=== PATIENT | male | born 1960 | race Caucasian/White ===

== ENCOUNTER → 2020-02-20 12:07 | Outpatient (CLI) | payer BC, SELFPAY ==
--- NOTE | ~2020-02-20 | XR_ITS ---
EXAMINATION: XR ankle LT min 3V DATE: 02/20/2020 12:17 INDICATION: Left ankle pain TECHNIQUE: Anteroposterior, oblique, mortise, and lateral views of the left ankle were obtained. COMPARISON: None. FINDINGS: Alignment is normal. No fracture. Joint spaces are well maintained. Tiny heterotopic ossicle positio mariia between the talus and the tip of the medial malleolus which could represent either a degenerative loose body or heterotopic ossification related to chronic medial ankle sprain. No ankle joint effusi on. The soft tissues are unremarkable. IMPRESSION: 1. No left ankle joint effusion or acute osseous abnormality. Reviewed, dictated and finalized at location A.
== END ==
PROVIDERS: PCP Family Medicine; Visit Provider Family Medicine
DX: M25.572 Pain in left ankle and joints of left foot (principal)
CPT/HCPCS: 73610

== ENCOUNTER 2020-03-24 09:18 | Emergency (ER) | payer OTHER, BC, SELFPAY ==
--- NOTE | ~2020-03-24 | XR_ITS ---
EXAMINATION: XR hand RT min 3V DATE: 03/24/2020 09:38 INDICATION: Right hand pain and swelling. TECHNIQUE: 3 views of right hand were obtained. COMPARISON: None. FINDINGS: Bone alignment is normal. No fracture. There is a 5 mm nonaggressive lytic lesion in scapho id, likely an enchondroma. There is mild osteoarthritis of second-fifth distal interphalangeal joints . IMPRESSION: 1. Mild polyarticular osteoarthritis. Reviewed, dictated and finalized at location A.
--- NOTE | 2020-03-24 09:29 | ED.UPPEXIN ---
HPI - Extremity Injury (Upper) General Chief Complaint: Extremity Injury, Upper Stated Complaint: swollen hand Time Seen by Provider: 03/24/20 09:29 Source: patient and RN notes reviewed History of Present Illness HPI narrative: Patient is a 59-year-old male who presents the urgent care with complaints of swelling to the right middle digit as well as the right hand. Patient states he is right-hand dominant and does work at [employer]. Patient states he did notice a small cut on the middle finger approximately 1 week ago and the swelling started on . Patient states he also had a fever of 101 Fahrenheit this morning. Patient is taken ibuprofen and tramadol for the pain and fever. Patient denies of any known injury. Unsure of last tetanus. No other acute complaints. No acute distress noted. Patient aware of the plan of care. Some parts of this dictation were generated by voice recognition software and may contain typographical and/or grammatical inaccuracies. Related Data Home Medications Medication Instructions Recorded Confirmed ibuprofen 800 mg PO Q8H PRN 03/24/20 03/24/20 Allergies Allergy/AdvReac Type Severity Reaction Status Date / Time atorvastatin Allergy Unknown leg pain Verified 03/24/20 09:36 Penicillins Allergy Unknown Skin Verified 03/24/20 09:36 Reaction simvastatin Allergy Unknown myalgias Verified 03/24/20 09:36 Review of Systems Review of Systems: Narrative: CONSTITUTIONAL: Denies fever, chills, or sweats. EYES: Denies visual changes, redness, or discharge. ENT: Denies rhinorrhea, congestion, sore throat, or otalgia. CARDIOVASCULAR: Denies chest pain, palpitations, or edema. RESPIRATORY: Denies cough or dyspnea. GASTROINTESTINAL: Denies abdominal pain, nausea, vomiting, or diarrhea. GENITOURINARY: Denies dysuria or hematuria. SKIN: Denies rash or itching. MUSCULOSKELETAL: Reports of pain and swelling to the right hand as well as to the MCP of the right middle finger NEUROLOGIC: Denies headache, numbness, or weakness. All other systems reviewed are negative, except as documented in HPI. [facility] Surgical History Surgical History History of appendectomy (~1982) History of esophagogastroduodenoscopy (~02/02/12) History of hernia repair (~2009) Family History Family History Mother Diabetes mellitus Family history of elevated blood lipids Sibling Family history of elevated blood lipids Cerebrovascular accident Malignant neoplasm of prostate Family history of coronary artery disease Family history of malignant neoplasm of esophagus Grandparent Family history of coronary artery disease Father Family history of malignant neoplasm of esophagus Social History Social History Smoking status: Former smoker Alcohol intake: current Comments At the time of my signature, I reviewed and agree with the nursing past medical, surgical, social, and family history. There is no relevant family history pertinent to the patient complaint. Exam Narrative: Exam Narrative: GENERAL: This is a well-nourished, well-developed patient, in no apparent distress. HEAD: normocephalic, atraumatic. EYES: PERRL. Sclera clear/white. Vision is grossly intact. EARS: External ears normal NOSE: External nose normal with no obvious nasal discharge, nares without redness, no rhinorrhea. THROAT: Mucous membranes moist NECK: Neck supple SKIN: 0.5 cm linear scabbed wound noted to the DIP of the right middle digit. Warm, intact with no suspicious lesions or rash, good texture and turgor. NEURO: awake, alert, and oriented to person, place and time. There were no obvious focal neurologic abnormalities. EXTREMITIES: Mild to moderate edema of the right hand more concentrated to the MCP of the right middle finger. Range of motion with
[2020-03-24 09:32] VITALS: BP 155/87; PULSE 71; RESP 20; TEMP 36.6; O2SAT 99
== END 2020-03-24 10:11 | disposition home or self-care (01) ==
PROVIDERS: Emergency Provider Nurse Practitioner Family
DX: L03.113 Cellulitis of right upper limb (principal); M19.041 Primary osteoarthritis, right hand; Z87.891 Personal history of nicotine dependence
CPT/HCPCS: 73130; 99213; G0463

== ENCOUNTER → 2020-04-02 17:41 | Outpatient (CLI) | payer BC, SELFPAY ==
--- NOTE | ~2020-04-02 | XR_ITS ---
XR lumbar spine 6V w bending 04/02/2020 17:58 Indication: Low back pain. Procedure: 7 views lumbar spine Comparison: No prior studies for comparison. Findings: Normal lumbar lordosis. Mild disc narrowing at L5-S1. No fracture or traumatic malalignment . There is wedge shaped appearance to T12, likely physiologic. No evidence for spondylolisthesis. No significant alteration of alignment with flexion/extension. Impression: 1: Mild lumbar spondylosis. Reviewed, dictated and finalized at location A. Impression: 1: Mild lumbar spondylosis.
== END ==
PROVIDERS: PCP Physician Assistant; Visit Provider Physician Assistant
DX: M54.32 Sciatica, left side (principal); M47.896 Other spondylosis, lumbar region
CPT/HCPCS: 72114

== ENCOUNTER 2020-05-10 07:05 | Outpatient (NON) | payer BC, SELFPAY ==
[2020-05-10 18:30] LABS: SARS-CoV-2 RNA PCR Positive
== END 2020-05-10 07:06 ==
LOC: ANHCOVIDDT 07:18
PROVIDERS: PCP Family Medicine; Visit Provider Physician Assistant
DX: U07.1 COVID-19 (principal)
CPT/HCPCS: 87635; C9803; U0003

== ENCOUNTER → 2020-06-26 15:44 | Outpatient (CLI) | payer BC, SELFPAY ==
--- NOTE | ~2020-06-26 | MR_ITS ---
EXAMINATION: MR lumbar spine wo con EXAM DATE: 06/26/2020 17:18 INDICATION: M54.32 - Sciatica, left side Sciatica, left side. TECHNIQUE: Multi-sequential, multiplanar MR images of the lumbar spine were obtained without contrast . Sagittal T1, T2, T2 fat saturation images. Axial T2 weighted images. There is no prior study for comparison. FINDINGS: There is moderate loss of the L5-S1 disc height with 5 mm retrolisthesis L5 on S1. The vert ebral bodies are otherwise aligned. The vertebral body and disc heights are otherwise well maintained . There are no suspicious marrow signal abnormalities. The conus medullaris terminates at the L1/2 le charles and has normal signal intensity and morphology. Paraspinal soft tissue is unremarkable. Level by level evaluation: T12-L1: Disc does not extend beyond the endplate margin. Facet arthropathy: Minimal. Neural foraminal stenosis: No stenosis. Central canal stenosis: No stenosis. L1-L2: Disc does not extend beyond the endplate margin. Facet arthropathy: Minimal. Neural foraminal stenosis: No stenosis. Central canal stenosis: No stenosis. L2-L3: Disc does not extend beyond the endplate margin. Facet arthropathy: Mild. Neural foraminal stenosis: No stenosis. Central canal stenosis: No stenosis. L3-L4: There is a mild diffuse disc bulge. Facet arthropathy: Mild. Neural foraminal stenosis: Mild bilateral. Central canal stenosis: No stenosis. L4-L5: There is a mild to moderate diffuse disc bulge. Facet arthropathy: Mild to moderate bilateral. Neural foraminal stenosis: Mild to moderate bilateral. Central canal stenosis: Mild. L5-S1: There is a moderate diffuse disc bulge. Facet arthropathy: Mild to moderate. Neural foraminal stenosis: Moderate bilateral. Central canal stenosis: Mild to moderate. IMPRESSION: 1. L5-S1 moderate spondylosis and grade 1 retrolisthesis. 2. Less spondylosis other levels. Reviewed, dictated and finalized at location A. 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
== END ==
PROVIDERS: PCP Family Medicine; Visit Provider Physician Assistant
DX: M54.32 Sciatica, left side (principal); M47.897 Other spondylosis, lumbosacral region
CPT/HCPCS: 72148

== ENCOUNTER 2020-08-07 09:28 | Outpatient (CLI) | payer BC, SELFPAY | END 2020-08-07 09:29 | disposition home or self-care (01) | LOC: ANHCOVIDVC 09:28 | PROVIDERS: PCP Family Medicine; Visit Provider Family Medicine | DX: Z23 Encounter for immunization (principal) | CPT/HCPCS: 0001A; 91300 ==

== ENCOUNTER 2020-08-28 09:25 | Outpatient (CLI) | payer BC, SELFPAY | END 2020-08-28 09:26 | disposition home or self-care (01) | LOC: ANHCOVIDVC 09:25 | PROVIDERS: PCP Family Medicine | DX: Z23 Encounter for immunization (principal) | CPT/HCPCS: 0002A; 91300 ==

== ENCOUNTER 2022-02-08 07:27 | Emergency (ER) | payer BC, SELFPAY ==
[2022-02-08] VITALS (27 sets, daily range): BP systolic 112–175; BP diastolic 60–90; PULSE 57–77; RESP 11–27; TEMP 36.2; O2SAT 94–99
--- NOTE | ~2022-02-08 | XR_ITS ---
EXAMINATION: XR chest 1V DATE: 02/08/2022 08:15 INDICATION: Dizziness and fatigue TECHNIQUE: frontal view of the chest was obtained. COMPARISON: None FINDINGS: Gradient of basilar predominant hazy opacities in the left mid and lower lung zones with indistinctne ss to portions of the left hemidiaphragm suggesting small posterior layering left pleural effusion wi th associated atelectasis and/or pneumonia. No other airspace opacities, pulmonary edema, pneumothora x or right pleural effusion. The cardiomediastinal silhouette is within normal limits for AP techniqu e. IMPRESSION: 1. Opacities in the left mid to lower lung zone suggesting small posterior layering pleural effusions with associated atelectasis and/or pneumonia. Reviewed, dictated and finalized at location A. IMPRESSION: 1. Opacities in the left mid to lower lung zone suggesting small posterior laye ring pleural effusions with associated atelectasis and/or pneumonia.
--- NOTE | ~2022-02-08 | CT_ITS ---
EXAMINATION: CT brain wo con DATE: 02/08/2022 08:08 INDICATION: Dizziness TECHNIQUE: Computed tomography (CT) of the head was performed without intravenous contrast. Sagittal and coronal reconstructions were performed. The mA was adjusted according to patient size. Iterative reconstruction technique was employed. The dose-length product was 681.00 mGy-cm. COMPARISON: None FINDINGS: No acute intracranial hemorrhage, acute infarction or abnormal extra axial fluid collection. There is mild scattered white matter hypoattenuation consistent with chronic small vessel ischemic disease. Ventricles are normal and symmetric. No mass/mass effect. The orbits, paranasal sinuses and mastoid a ir cells are normal. IMPRESSION: 1. Mild scattered white matter hypoattenuation consistent with chronic small vessel ischemic disease. No acute intracranial process. Reviewed, dictated and finalized at location A. IMPRESSION: 1. Mild scattered white matter hypoattenuation consistent with chronic small ve ssel ischemic disease. No acute intracranial process.
--- NOTE | 2022-02-08 07:30 | ECG_ITS ---
Measurements Intervals [place] Rate: 69 P: 39 [place]: 167 QRS: 40 QRSD: 102 T: 40 QT: 376 QTc: 404 Interpretive Statements SINUS RHYTHM LOW QRS VOLTAGE IN PRECORDIAL LEADS BORDERLINE R WAVE PROGRESSION, ANTERIOR LEADS BORDERLINE T WAVE ABNORMALITY- ANNTERIOR LEADS BORDERLINE ECG NO PREVIOUS ECG AVAILABLE FOR COMPARISON Electronically Signed On 02-08-2022 8:29:29 CDT by Trace Peña D.O.
--- NOTE | 2022-02-08 07:50 | ED.DIZZY ---
HPI - Dizziness General Chief Complaint: Dizziness Stated Complaint: dizziness, weakness Time Seen by Provider: 02/08/22 07:30 Source: RN notes reviewed History of Present Illness HPI Narrative: Patient presents emergency department from home for dizziness. Patient states dizziness occurred this morning approximately 6 AM when he got up out of bed to go to the restroom he states he began to feel like the room was spinning. States that dizziness is worse when he stands up and is improved when he lays back down states laying in bed currently has minimal dizziness and states is associated with nausea he denies any fevers or chills he denies any numbness or tingling of extremities chest pain shortness of breath or any other symptoms. States did not take anything for the symptoms Related Data Allergies Allergy/AdvReac Type Severity Reaction Status Date / Time atorvastatin Allergy Unknown leg pain Verified 01/14/22 10:43 Penicillins Allergy Unknown Skin Verified 01/14/22 10:43 Reaction simvastatin Allergy Unknown myalgias Verified 01/14/22 10:43 Review of Systems Review of Systems: Gen.: Denies fevers or chills Eyes: Denies eye pain or visual change ENT: Denies congestion Respiratory: Denies shortness of breath or cough CV: Denies chest pain or palpitations GI: Denies abdominal pain nausea, emesis or diarrhea Musculoskeletal: Denies back pain or muscle pain Neuro: See HPI Skin: Denies rash Except as documented, all other systems reviewed and negative [facility] Past Medical History Medical History COVID-19 Surgical History Surgical History History of appendectomy (~1982) History of esophagogastroduodenoscopy (~02/02/12) History of hernia repair (~2009) Family History Family History Mother Diabetes mellitus Family history of elevated blood lipids Sibling Family history of elevated blood lipids Cerebrovascular accident Malignant neoplasm of prostate Family history of coronary artery disease Family history of malignant neoplasm of esophagus Grandparent Family history of coronary artery disease Father Family history of malignant neoplasm of esophagus Social History Social History Smoking packs per day: 0.5 Smoking cigarettes per day: 10.0 Years smoked: 3 Smoking pack-years: 1.50 Smoking status: Former smoker Tobacco type: cigarettes Smoking end date: 01/19/80 Alcohol intake: current Substance use: never Substance use type: does not use Exam Narrative: APPEARANCE: No acute distress, nontoxic, resting in bed HEENT: Normocephalic, atraumatic, OMM, TMs clear bilaterally EYES: PERRL, EOMI RESPIRATORY: No respiratory distress, clear to auscultation bilaterally with no rhonchi wheezing or rales CARDIOVASCULAR: RRR s murmur ABDOMINAL: Soft, nontender, nondistended MUSCULOSKELETAL: Moves all extremities. No clubbing, cyanosis or edema. NEURO: A and O ?3, following commands, speech normal, cranial nerves II through XII grossly intact,muscle strength 5 out of 5 bilateral upper and lower extremities no pronator drift SKIN:: Warm, dry. Right cheek below the eye has a small circular wound with surrounding erythema no active drainage consistent with cellulitis PSYCHIATRIC: Normal affect/mood Course Course Emergency Course: Discussed with patient his right cheek wound he states he had a small scab there that it opened up approximately 5 days ago with new surrounding increased erythema and swelling will place on antibiotic Review of the patient's chest x-ray discussed with the patient he has had no shortness of breath no cough no fever BMP was within normal limits no signs of infection discussed with the patient the small pleural effusion possibly seen on x-ray and need to follow w
--- NOTE | 2022-02-08 08:03 | PC.NURSE ---
Patient off unit to CT.
[2022-02-08 08:06] LABS: Basophils Absolute Auto 0.1 K/mm3 (0.0-0.1); Basophils Percent Auto 0.7 % (0.2-1.2); Eosinophils Absolute Auto 0.3 K/mm3 (0-0.3); Eosinophils Percent Auto 4.2 % (0-4.4); Hematocrit 44.1 % (42.0-52.0); Hemoglobin 14.8 g/dL (14.0-18.0); Immature Granulocyte Absolute 0.01 K/mm3 (0.00-0.031); Immature Granulocyte Percent A 0.1 % (0-0.5); Lymphocytes Absolute Auto 1.42 K/mm3 (0.9-3.2); Lymphocytes Percent Auto 20.8 % (18.3-44.2); Mean Corpuscular HGB Conc 33.6 g/dl (32-36); Mean Corpuscular Hemoglobin 28.8 pg (26-34); Mean Corpuscular Volume 85.8 fl (80-100); Mean Platelet Volume 8.9 fl (7.4-10.4); Monocytes Absolute Auto 0.6 K/mm3 (0.1-0.6); Monocytes Percent Auto 8.9 % (2.6-8.5); Neutrophils Absolute Auto 4.5 K/mm3 (1.3-6.7); Neutrophils Percent Auto 65.3 % (45.5-73.1); Platelet Count Result 266 k/mm3 (150-375); Red Blood Count 5.14 M/mm3 (4.6-6.20); Red Cell Distribution Width 13.5 % (11.5-14.5); White Blood Count 6.8 K/mm3 (4.5-10.0)
[2022-02-08 08:15] LABS: Alanine Aminotransferase 18 U/L (6-50); Alkaline Phosphatase 84 U/L (38-126); Anion Gap 11 mmol/L (8-16); Aspartate Amino Transferase 23 U/L (17-59); Bilirubin,Total 0.4 mg/dL (0.2-1.3); Blood Urea Nitrogen 12 mg/dL (9-20); Calcium 8.4 mg/dL (8.4-10.2); Carbon Dioxide 29 mmol/L (22-30); Chloride 99 mmol/L (98-107); Estimated CRCL calculation 91 ml/min; Estimated Glomerular Filt Rate > 60; Glucose 139 mg/dL (65-110); Potassium 4.1 mmol/L (3.4-5.0); Sodium 139 mmol/L (137-145)
[2022-02-08] MEDS: ONDANSETRON INJ 4 MG/2 ML VIAL IV PUSH (08:17)
[2022-02-08] MEDS: MECLIZINE HCL 25 MG TABLET PO (08:17)
[2022-02-08 08:27] LABS: Troponin I < 0.012 ng/mL (0.000-0.034)
[2022-02-08 09:02] LABS: Appearance Urine Clear (Clear); Bilirubin Urine Negative (Negative); Color Urine Yellow (Yellow); Glucose Urine UA Negative (Negative); Ketones Urine Negative (Negative); Leukocyte Esterase Ur Negative LEU/UL (Negative); Nitrate Urine Negative (Negative); Protein Urine Negative (Negative); Specific Grav Ur 1.015 (1.001-1.035); Urobilinogen Urine 0.2 mg/dL (<2.0)
[2022-02-08 09:16] LABS: NT Pro B Type Natriuretic Pept 59 pg/mL (5-100)
[2022-02-08 09:19] LABS: Add Urine Microscopic? YES; Blood Urine Trace-Intact (Negative)
[2022-02-08 09:23] LABS: Mucus Urine Rare /lpf; RBC Urine 0-2 /hpf (0-2); Squamous Epithelial Cell Urine Rare /hpf (Few); WBC Urine 0-3 /hpf
[2022-02-08] MEDS: diazePAM (*CRX) 2 MG TABLET PO (10:43)
--- NOTE | 2022-02-08 11:01 | PC.NURSE ---
Patient report given to MARLEN Moreno. All questions answered and care of patient transferred.
[2022-02-08] MEDS: CLINDAMYCIN HCL 150 MG CAP 450 MG PO (12:16)
== END 2022-02-08 12:28 | disposition home or self-care (01) ==
PROVIDERS: Emergency Provider Emergency Medicine; PCP Family Medicine
DX: R42 Dizziness and giddiness (principal); L03.211 Cellulitis of face; Z86.16 Personal history of COVID-19
CPT/HCPCS: 36415; 70450; 71045; 80053; 81001; 83880; 84484; 85025; 93005; 96374; 99284; A9270; J2405

== ENCOUNTER 2022-06-04 07:42 | Outpatient (CLI) | payer BC, SELFPAY ==
[2022-06-04 09:23] LABS: Albumin Level 4.4 g/dL (3.5-5.1); Anion Gap 5 mmol/L (8-16); Blood Urea Nitrogen 19 mg/dL (9-20); Carbon Dioxide 31 mmol/L (22-30); Chloride 99 mmol/L (98-107); Estimated Glomerular Filt Rate > 60; Glucose 124 mg/dL (65-110); Potassium 4.2 mmol/L (3.4-5.0); Sodium 135 mmol/L (137-145)
[2022-06-04 09:36] LABS: Urine Cotinine NEGATIVE
[2022-06-04 09:38] LABS: Basophils Absolute Auto 0.1 K/mm3 (0.0-0.1); Basophils Percent Auto 0.9 % (0.2-1.2); Eosinophils Absolute Auto 0.3 K/mm3 (0-0.3); Eosinophils Percent Auto 4.1 % (0-4.4); Hematocrit 48.2 % (42.0-52.0); Hemoglobin 16.1 g/dL (14.0-18.0); Immature Granulocyte Absolute 0.01 K/mm3 (0.00-0.031); Immature Granulocyte Percent A 0.1 % (0-0.5); Lymphocytes Absolute Auto 1.78 K/mm3 (0.9-3.2); Lymphocytes Percent Auto 23.6 % (18.3-44.2); Mean Corpuscular HGB Conc 33.4 g/dl (32-36); Mean Corpuscular Hemoglobin 28.5 pg (26-34); Mean Corpuscular Volume 85.3 fl (80-100); Mean Platelet Volume 9.2 fl (7.4-10.4); Monocytes Absolute Auto 0.7 K/mm3 (0.1-0.6); Monocytes Percent Auto 9.3 % (2.6-8.5); Neutrophils Absolute Auto 4.7 K/mm3 (1.3-6.7); Platelet Count Result 299 k/mm3 (150-375); Red Blood Count 5.65 M/mm3 (4.6-6.20); Red Cell Distribution Width 13.2 % (11.5-14.5); White Blood Count 7.5 K/mm3 (4.5-10.0)
[2022-06-04 09:55] LABS: Hemoglobin A1C 7.1 % (<5.7)
== END 2022-06-04 07:43 | disposition home or self-care (01) ==
LOC: ANHSURGERY 07:45
PROVIDERS: PCP Family Medicine; Visit Provider Orthopaedic Surgery
DX: M17.12 Unilateral primary osteoarthritis, left knee (principal); Z01.818 Encounter for other preprocedural examination
CPT/HCPCS: 80048; 80307; 82040; 83036; 85025; 87081; 87147; 87181; 87186

== ENCOUNTER 2022-07-01 10:23 | Outpatient (CLI) | payer BC, SELFPAY | END 2022-07-01 10:24 | disposition home or self-care (01) | PROVIDERS: PCP Family Medicine; Visit Provider Orthopaedic Surgery | DX: M17.12 Unilateral primary osteoarthritis, left knee (principal) | CPT/HCPCS: 36415; 86850; 86900; 86901 ==

== ENCOUNTER 2022-07-04 09:49 | Outpatient (CLI) | payer BC, SELFPAY ==
--- NOTE | 2022-07-04 10:02 | ECG_ITS ---
Measurements Intervals [place] Rate: 67 P: 30 AR: 152 QRS: 52 QRSD: 105 T: 28 QT: 356 QTc: 378 Interpretive Statements SINUS RHYTHM LOW QRS VOLTAGE IN PRECORDIAL LEADS BASELINE WANDER- AVR, AVL, AVF, V5-V6 BORDERLINE ECG COMPARED TO ECG 02/08/2022 07:41:41 NO SIGNIFICANT CHANGES Electronically Signed On 07-04-2022 10:24:45 SENIOR ANALYSIS SPECIALIST by Trace Peña D.O.
== END 2022-07-04 09:50 | disposition home or self-care (01) ==
PROVIDERS: PCP Family Medicine; Visit Provider Family Medicine
DX: Z01.818 Encounter for other preprocedural examination (principal); R94.31 Abnormal electrocardiogram [ECG] [EKG]
CPT/HCPCS: 93005

== ENCOUNTER 2022-07-07 02:26 | Day surgery (SDC) | payer BC, SELFPAY ==
[2022-06-04 08:04] VITALS: BMI 34.2
--- NOTE | 2022-06-04 08:17 | PC.NURSE ---
Report to the Outpatient Waiting Room, entrance under the green pavilion located off [facility], at time __1000 on date __06/18/22 . Planned Procedure Time: 1200 . Time changes happen often and if your time is changed the preop area will call you the afternoon before. - You and your visitor will be asked to self-screen and do not enter if you have any COVID symptoms. - Only one visitor is requested with a max of two and NO children visitors are allowed at this time. - The patient visitor may be requested to leave or wait in car when not with patient due to distancing restrictions. - A mask is optional within the hospital. Patients may have clear liquids (water, carbonated beverages, clear teas, apple juice) until 3 hours prior to surgery with a maximum of 20 ounces. - No food from midnight until time of surgery - Infants may have breast milk until 4 hours before surgery, infant formula 6 hours prior to surgery. - Children will be allowed to drink immediately following surgery. If applicable, please bring a bottle or sippy cup to assist with drinking. Juice, water, soda, and popsicles are readily available. For infants on formula, please bring formula the day of surgery. Pacifiers are allowed. Take the following medications with a SIP of water the morning of surgery: ___NONE Medications to discontinue per physician ____MELOXICAM 7 DAYS PRE OP PER DR GALINDO LAST DOSE 06/10/22 . ALL VITAMINS AND SUPPLEMENTS 3 DAYS PRE OP LAST DOSE 06/14/22 Please no make-up, nail kittitian, hairspray, perfume, deodorant, or body powder the day of surgery. No jewelry (including any body piercings) or valuables the day of surgery, leave them at home. Please take a shower or bath the night before, or the morning of, surgery with an antibacterial soap. Wear comfortable, loose fitting clothing. Children are encouraged to wear pajamas. - Jewelry must be removed prior to entering the operating room. Rings and piercings that are not removed may be cut off. - The hospital will not accept responsibility for valuables. - Please leave all valuables, including medications, at home the day of surgery. If you are going home after surgery, a licensed milk driver must drive you home. - NO public transportation without another adult if you receive anesthesia. - We recommend that an adult stay with you for 24 hours following discharge. - We also recommend that you do not drive, make important decision, drink alcoholic beverages, or take any drugs that were not prescribed by your health care provider for at least 24 hours after your discharge time. Follow any additional instructions given to you from your surgeon. If you or anyone in your household have experienced Covid symptoms in the past week, please notify your surgeon or the nurse liaison at the phone number below for possible testing. VERBAL AND WRITTEN instructions given to ___PATIENT AND BHUPINDER and asked if any additional questions and then verbalized understanding. Patient advised to call surgeon office or pre surgery nurse liaison [phone] if any additional questions.
[2022-06-04 08:34] VITALS: BP 176/82; PULSE 65; RESP 18; TEMP 37.2; O2SAT 99
--- NOTE | 2022-06-30 12:10 | PC.NURSE ---
Report to the Outpatient Waiting Room, entrance under the green pavilion located off [facility], at time _0930 on date 07/07/22 . Planned Procedure Time: _1130 . Time changes happen often and if your time is changed the preop area will call you the afternoon before. - You and your visitor will be asked to self-screen and do not enter if you have any COVID symptoms. - Only one visitor is requested with a max of two and NO children visitors are allowed at this time. - The patient visitor may be requested to leave or wait in car when not with patient due to distancing restrictions. - A mask is optional within the hospital. Patients may have clear liquids (water, carbonated beverages, clear teas, apple juice) until 3 hours prior to surgery with a maximum of 20 ounces. - No food from midnight until time of surgery - Infants may have breast milk until 4 hours before surgery, formula 6 hours prior to surgery. - Children will be allowed to drink immediately following surgery. If applicable, please bring a bottle or sippy cup to assist with drinking. Juice, water, soda, and popsicles are readily available. For infants on formula, please bring formula the day of surgery. Pacifiers are allowed. Take the following medications with a SIP of water the morning of surgery: _NONE Medications to discontinue per physician __MELOXICAM 7 DAYS PRE OP .LAST DOSE06/29/22.ALL VITAMINS AND SUPPLEMENTS 3 DAYS PRE OP. LAST DOSE 07/03/22 Please no make-up, nail turkish, hairspray, perfume, deodorant, or body powder the day of surgery. No jewelry (including any body piercings) or valuables the day of surgery, leave them at home. Please take a shower or bath the night before, or the morning of, surgery with an antibacterial soap. Wear comfortable, loose fitting clothing. Children are encouraged to wear pajamas. - Jewelry must be removed prior to entering the operating room. Rings and piercings that are not removed may be cut off. - The hospital will not accept responsibility for valuables. - Please leave all valuables, including medications, at home the day of surgery. If you are going home after surgery, a licensed putaway driver must drive you home. - NO public transportation without another adult if you receive anesthesia. - We recommend that an adult stay with you for 24 hours following discharge. - We also recommend that you do not drive, make important decision, drink alcoholic beverages, or take any drugs that were not prescribed by your health care provider for at least 24 hours after your discharge time. For Pediatric surgeries, we recommend two adults accompany the child home. Follow any additional instructions given to you from your surgeon. If you or anyone in your household have experienced Covid symptoms in the past week, please notify your surgeon or the nurse liaison at the phone number below for possible testing. Telephone instructions given to __PATIENT and asked if any additional questions and then verbalized understanding. Patient advised to call surgeon office or pre surgery nurse liaison [phone] if any additional questions.
--- NOTE | 2022-06-30 12:14 | PC.NURSE ---
PT STATES NO CHANGE IN HEALTH HX SINCE LAST INTERVIEW 06/04/22
--- NOTE | 2022-07-02 11:49 | PM.IMHP ---
H&P: HPI History of Present Illness Date/Time: 07/02/22 11:49 Chief Complaint: Bilateral knee DJD Narrative: 61-year-old patient of Dr. Hammer who presents today for left total knee arthroplasty with cortisone injection into the right knee. Patient has been having symptoms in his knees for years. He has advanced medial compartment osteoarthritis. At this point his left is more problematic than the right. He has been taking meloxicam 15 mg daily. He had cortisone injections in February of last year which only offered him 1 month improvement. Patient has been having significant symptoms on a daily basis and feels this point he is ready to proceed with total knee arthroplasty rather continue nonsurgical treatment. Review of Systems Review of Systems: All systems reviewed & are unremarkable except as noted in HPI and below PMFSH Past Medical History Medical History COVID-19 Surgical History Surgical History History of appendectomy (~1982) History of esophagogastroduodenoscopy (~02/02/12) History of hernia repair (~2009) Family History Family History Mother Diabetes mellitus Family history of elevated blood lipids Sibling Family history of elevated blood lipids Cerebrovascular accident Malignant neoplasm of prostate Family history of coronary artery disease Family history of malignant neoplasm of esophagus Grandparent Family history of coronary artery disease Father Family history of malignant neoplasm of esophagus Social History Social History Smoking packs per day: 1 Smoking cigarettes per day: 20.0 Years smoked: 10 Smoking pack-years: 10.00 Smoking status: Former smoker Tobacco type: cigarettes Smoking end date: 06/08/04 Additional smoking assessment comments: DENIES ANY FORM OF TOBACCO USE Alcohol intake: current Alcohol use details: 2 DRINKS PER MONTH Substance use: never Substance use type: does not use Lack of Transportation: No Lack of Food: Never True Current Housing: I Have Housing Concerned About Future Housing: No Difficulty Paying Gas/Electric Bills: No Difficulty Paying for Meds: No Currently Unemployed: No Education: Trade/Vocational Certificate Difficulty w/ Childcare or Family Care: No Living arrangements: with family Spiritual care concerns: No Meds Home Medications and Allergies Home Medications Medication Instructions Recorded Confirmed Type meloxicam 15 mg tablet See Rx Instructions .Route 05/08/21 06/30/22 Rx .COMPLEX #90 tabs meclizine 12.5 mg tablet 12.5 mg PO TID PRN dizziness #10 02/08/22 06/30/22 Rx tabs mupirocin 2 % topical ointment 1 applic topical TID PRN skin 02/12/22 06/30/22 Rx lesion #15 grams omega 7-kun-fez-fish oil 1,000 mg 1 cap PO DAILY #90 caps 03/20/22 06/30/22 Rx (120 mg-180 mg) capsule (Fish Oil) rosuvastatin 20 mg tablet 20 mg PO DAILY #90 tabs 03/20/22 06/30/22 Rx Allergies Allergy/AdvReac Type Severity Reaction Status Date / Time atorvastatin Allergy Unknown leg pain Verified 06/30/22 12:04 Penicillins Allergy Unknown Unknown Verified 06/30/22 12:04 simvastatin Allergy Unknown myalgias Verified 06/30/22 12:04 Exam Narrative: 61-year-old male alert pleasant. He is 5 ft 7 in tall and 225 lb. His BMI is 35.2. He walks with a pronounced varus deformity in both knees. Left knee range of motion is from 225?. He has mild medial pseudolaxity no lateral laxity. 2+ dorsalis pedis and posterior artery pulse palpable. Hip range motion is full without discomfort. Negative Stinchfield maneuver. Skin is all normal in the left lower extremity. There is no edema. No make 5 strength. Moderate medial joint line tenderness as well as a trace effusion. Resp: Auscultation: c
[2022-07-07] VITALS (14 sets, daily range): BP systolic 121–164; BP diastolic 68–89; PULSE 72–102; RESP 12–16; TEMP 35.9–36.7; O2SAT 94–100
--- NOTE | ~2022-07-07 | XR_ITS ---
EXAMINATION: XR knee LT 2V DATE: 07/07/2022 16:34 INDICATION: Postoperative evaluation following left total knee arthroplasty. TECHNIQUE: Anteroposterior and lateral views of the left knee were obtained. COMPARISON: None. FINDINGS: Left total knee arthroplasty without patellar resurfacing appears well seated and in near anatomic al ignment. No fractures identified. Expected postoperative subcutaneous and intra-articular gas. IMPRESSION: 1. Left total knee arthroplasty, negative for postoperative purposes. Reviewed, dictated and finalized at location A. D INVESTIGATOR
[2022-07-07] MEDS: ACETAMINOPHEN 500 MG TABLET 1000 MG PO ×2 (09:20→18:57)
[2022-07-07] MEDS: LACTATED RINGERS 1,000 ML 30 ML IV CONT ×2 (09:30→16:28)
--- NOTE | 2022-07-07 11:30 | WPDANESEPPF ---
Anes - Initial Pre Proc Eval Procedure: Operation Date: 07/07/22 11:30 Proposed Procedures p Left Total Knee Arthroplasty, Cortisone Injection Right Knee - Joe Navarro MD Date/Time: 07/07/22 11:30 Surgeon: Joe Navarro MD Pre Op Diagnosis: oa right and left knee Patient Data Age: 61 Gender: M Height: 1.75 m Weight: 106.5 kg Last Vital Signs Temp 97.3 F L 07/07/22 09:56 Pulse 72 07/07/22 09:56 Resp 16 07/07/22 09:56 BP 164/89 H 07/07/22 09:56 Pulse Ox 98 07/07/22 09:56 O2 Del Method Room Air 07/07/22 09:56 Allergies Allergy/AdvReac Type Severity Reaction Status Date / Time atorvastatin Allergy Unknown leg pain Verified 07/07/22 08:59 Penicillins Allergy Unknown Unknown Verified 07/07/22 08:59 simvastatin Allergy Unknown myalgias Verified 07/07/22 08:59 Home Medications Medication Instructions Recorded Confirmed Type meloxicam 15 mg tablet See Rx Instructions .Route 05/08/21 07/07/22 Rx .COMPLEX #90 tabs meclizine 12.5 mg tablet 12.5 mg PO TID PRN dizziness #10 02/08/22 07/07/22 Rx tabs mupirocin 2 % topical ointment 1 applic topical TID PRN skin 02/12/22 07/07/22 Rx lesion #15 grams omega 5-atl-yqz-fish oil 1,000 mg 1 cap PO DAILY #90 caps 03/20/22 07/07/22 Rx (120 mg-180 mg) capsule (Fish Oil) rosuvastatin 20 mg tablet 20 mg PO DAILY #90 tabs 03/20/22 07/07/22 Rx Patient hx anesthesia problems: none Family hx anesthesia problems: none Results Review: All pre-operative results and documents have been reviewed as part of the pre-operative evaluation. [facility] Past Medical History Medical History COVID-19 Surgical History Surgical History History of appendectomy (~1982) History of esophagogastroduodenoscopy (~02/02/12) History of hernia repair (~2009) Family History Family History Mother Diabetes mellitus Family history of elevated blood lipids Sibling Family history of elevated blood lipids Cerebrovascular accident Malignant neoplasm of prostate Family history of coronary artery disease Family history of malignant neoplasm of esophagus Grandparent Family history of coronary artery disease Father Family history of malignant neoplasm of esophagus Social History Social History Smoking packs per day: 1 Smoking cigarettes per day: 20.0 Years smoked: 10 Smoking pack-years: 10.00 Smoking status: Former smoker Tobacco type: cigarettes Smoking end date: 06/08/04 Additional smoking assessment comments: DENIES ANY FORM OF TOBACCO USE Alcohol intake: current Alcohol use details: 2 DRINKS PER MONTH Substance use: never Substance use type: does not use Lack of Transportation: No Lack of Food: Never True Current Housing: I Have Housing Concerned About Future Housing: No Difficulty Paying Gas/Electric Bills: No Difficulty Paying for Meds: No Currently Unemployed: No Education: Trade/Vocational Certificate Difficulty w/ Childcare or Family Care: No Living arrangements: with family Spiritual care concerns: No Anes - Eval Final PreProcedure Day of Procedure 07/07/22 11:30 Patient weight: obese Heart: regular rate and rhythm Lungs: clear to auscultation Airway: Mallampati scale class II Neurological: alert and oriented Last oral intake: >/= 8 hours ASA classification: III Emergent: no Anesthetic plan: proceed Anesthesia type and monitoring: general ETT and standard monitoring Results Review: All pre-operative results and documents have been reviewed as part of the pre-operative evaluation. Informed Consent: The patient's anesthetic plan and its attendant risks and benefits were discussed with the patient/family/POA. Questions were solicited and answers provided to the satisfaction
--- NOTE | 2022-07-07 11:49 | WPDHPUPDATE1 ---
History and Physical Update Update Date/Time: 07/07/22 11:49 History and Physical has been reviewed, including an updated exam of the patient. There are NO changes in the patient's condition. Risks, benefits, and alternatives have been discussed and questions answered. Patient agrees to proceed with procedure.
[2022-07-07] MEDS: TRANEXAMIC ACID 1,000MG/ISO100 1,000 MG/100 ML BAG 200 MG IVPB (12:42)
[2022-07-07] MEDS: ceFAZolin 2 GM/D5W 50 ML 2 GM/50 ML BAG IVPB (12:42)
[2022-07-07] MEDS: ceFAZolin SODIUM 1 GM VIAL 3 GM (13:33)
[2022-07-07] MEDS: GENTAMICIN BONE CEMENT REFOBACIN 1 EACH TOPICAL (13:34)
[2022-07-07] MEDS: ceFAZolin SODIUM 1 GM VIAL 2 GM IV PUSH (15:27)
[2022-07-07] MEDS: TRANEXAMIC ACID 1,000 MG/10 ML AMPUL 1000 MG IV PUSH (15:28)
[2022-07-07] MEDS: methylPREDNISolone ACETATE 80 MG/ML VIAL XX (16:03)
--- NOTE | 2022-07-07 16:17 | W.PM.PROC2 ---
Procedure Note - Detailed Date of Procedure 07/07/22 Pre-op Diagnosis oa right and left knee Post-op Diagnosis Same Procedure Performed Cortisone injection right knee, left total knee arthroplasty Surgeon Joe Navarro MD [employer] Imelda Anesthesia General Description of Procedure Patient was brought to the operating room and general anesthesia was administered. The right knee was prepped with ChloraPrep and 80 mg of Depo-Medrol and 3 cc 1% lidocaine were injected without difficulty into the right knee lateral parapatellar approach. The left knee was prepped draped usual fashion. He received 2 g of Ancef weight based vancomycin 1 g of tranexamic acid preoperatively. Limb was exsanguinated tourniquet elevated to 250 mmHg. A 7 in midline anterior incision was made in the standard parapatellar arthrotomy utilized. Infrapatellar and suprapatellar fat pads were excised a quadriceps synovectomy carried out. Limited synovectomy performed mobilized the quadriceps. The patella had normal articular cartilage with minimal peripheral spurring. He had high-grade lesion in the anterior trochlea. He had complete eburnation the medial compartment. A guide sarah was inserted down the femoral canal after aspiration of canal contents using the 5 degree valgus cutting bushing 5 mm of bone removed the distal femur. This removed a little bit less medially and laterally because of his varus alignment and significant distal femoral wear. Next the tibial plateau was cut perpendicular to the axis of the tibia. This gave us a skim cut posteromedially 0.5 mm under low point of the sclerotic bone in that area and removed about 13 laterally. Meniscal remnants were excised PCL was recessed. The knee was quite a bit tighter medially than laterally in extension and in flexion. He had a 10 degree anatomic axis varus deformity before surgery with some distraction of the lateral joint space. Care was taken to avoid any release of lateral capsule from lateral tibia which was successful. Anteromedial tibial osteophytes removed. Flexion gap measured 8 mm medially and 12 mm laterally. The femoral sizing guide was applied at 5? of external rotation matching Whitesides line posterior referencing pinholes were placed and the 67.5 cutting block applied AP and chamfer cuts were made and the 65 fit nicely medial to lateral. There is about 1-2 mm of overhang of the anterior chamfer from the anterior cortex at the far proximal edge. I did not feel that downsizing would be necessary and would under sized the component relative to the with the femur. We trialed and I could see that we were excessively tight at 90? medially still with the 10 CR insert as well as in extension. We confirmed that the tibia was cut at 0? and we reapplied the tibial cutting guide in an effort to remove 2 mm of bone from the medial tibial plateau and have the cut transition to flush with the lateral margin lateral plateau introduce about 2? of varus since he had constitutional tibia vera deformity and excessive medial malleolus release was felt to be suboptimal. This cut was made and we confirmed the alignment. The tibia was sized to a 71 which fit line to line posterolateral to anteromedial. This was punched. His bone quality was excellent. We trialed with 10 insert which came out easily to full extension but had a little bit of play anterior posteriorly at 90? with about 4 mm of lateral opening and 1-2 of medial opening. We trialed with the 11 insert this had a much better feel at 90? with respect to stability opening 1 medial 3 lateral. However, it did not quite come out to full extension. In extension and had 3 mm of lateral opening and less than 1 mm of medial opening. I felt that we could achieve appropriate range of motion without additional distal femoral resection at this point and we applied the trial femur removed posterior femoral osteophyte. We applied the tibial tray subluxes anteriorly and re
--- NOTE | 2022-07-07 16:34 | PM.OP ---
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 I was involved in the procedure including positioning patient on OR table. I 1st assisted through the time of surgery as well as wound closure. Also assisted in getting patient to recovery. Total time spent was 4 hours Surgeon: MARQUES Ocampo
[2022-07-07] MEDS: fentaNYL CITRATE INJ (*CRX) 100 MCG/2 ML VIAL 25 MCG IV PUSH ×8 (16:37→17:10)
[2022-07-07] MEDS: HYDROmorphone HCL INJ (*CRX) 1 MG/ML SYR 0.25 MG IV PUSH ×6 (17:19→18:02)
--- NOTE | 2022-07-07 18:30 | PC.NURSE ---
This patient, Ian Murillo, was admitted to 3 Med Surg Room 327-01. Patient/family oriented to hospital policies and general routines including ID bracelet, bed and alarms, visiting hours, pain management, procedures, bathroom and other care routines, personal items, smoking policy, room service/diet, and visiting hours. Information on how to activate the Rapid Response Team has been discussed. Patient/Family are encouraged to report perceived risks to care and to ask questions if they do not understand what they are told or what they should do.
[2022-07-07] MEDS: oxyCODONE HCL (*CRX) 5 MG TAB IR PO ×2 (18:57→20:41)
[2022-07-07] MEDS: KETOROLAC 15 MG/ML VIAL (*BKC) IV PUSH (18:58)
[2022-07-07] MEDS: SENNA/DOCUSATE SODIUM TABLET 2 TAB PO (18:59)
[2022-07-07] MEDS: FAMOTIDINE 20 MG TABLET PO (20:40)
[2022-07-08] MEDS: ACETAMINOPHEN 500 MG TABLET 1000 MG PO ×3 (00:50→12:09)
[2022-07-08] MEDS: KETOROLAC 15 MG/ML VIAL (*BKC) IV PUSH (00:56)
[2022-07-08] MEDS: oxyCODONE HCL (*CRX) 5 MG TAB IR PO ×4 (00:57→13:11)
[2022-07-08] MEDS: ONDANSETRON INJ 4 MG/2 ML VIAL IV PUSH (00:59)
[2022-07-08 03:57] VITALS: BP 135/76; PULSE 71; RESP 16; TEMP 36.2; O2SAT 95
--- NOTE | 2022-07-08 06:16 | PM.PNORT ---
Subjective Subjective Date/Time Seen: 07/08/22 06:16Postop day 1 patient is alert. He is afebrile vital signs are stable. Neurovascularly he is intact. Pain is very well controlled. Dressing is dry and intact. Patient has been to the chair overnight. He is urinating well. Morning labs have not been completed. Patient overall at this point is doing very well. He is going work with physical therapy today and if he continues to do well we will plan on discharging him home this afternoon after IV antibiotics have been completed as well as his 2nd therapy session. Objective Data Vital Signs Vital Signs: Vital Signs - 24 hr 07/07/22 09:56 07/07/22 16:28 07/07/22 16:40 Temperature 36.3 C L 36.6 C Pulse Rate 72 93 82 Respiratory Rate 16 16 14 Blood Pressure 164/89 H 121/68 152/83 H Pulse Oximetry 98 96 100 Oxygen Delivery Room Air Simple Face Mask Simple Face Mask Oxygen Flow Rate 6 6 07/07/22 16:55 07/07/22 17:10 07/07/22 17:25 Temperature Pulse Rate 92 92 89 Respiratory Rate 14 12 12 Blood Pressure 138/81 152/77 H 145/83 H Pulse Oximetry 100 100 97 Oxygen Delivery Simple Face Mask Room Air Nasal Cannula Oxygen Flow Rate 6 2 07/07/22 17:40 07/07/22 17:55 07/07/22 18:10 Temperature 36.7 C Pulse Rate 92 72 97 Respiratory Rate 14 12 14 Blood Pressure 147/87 H 147/87 H 134/85 Pulse Oximetry 99 94 97 Oxygen Delivery Nasal Cannula Nasal Cannula Nasal Cannula Oxygen Flow Rate 2 2 2 07/07/22 18:25 07/07/22 18:40 07/07/22 18:36 Temperature 36.0 C L 35.9 C L Pulse Rate 94 102 H Respiratory Rate 16 16 Blood Pressure 153/86 H 159/83 H Pulse Oximetry 97 94 Oxygen Delivery Room Air Oxygen Flow Rate 07/07/22 19:57 07/07/22 20:00 07/07/22 20:00 Temperature 36.6 C 36.6 C Pulse Rate 100 100 Respiratory Rate 16 16 Blood Pressure 142/86 H 142/86 H Pulse Oximetry 96 96 Oxygen Delivery Room Air Room Air Oxygen Flow Rate 07/07/22 23:57 Temperature 36.5 C Pulse Rate 99 Respiratory Rate 14 Blood Pressure 154/73 H Pulse Oximetry 96 Oxygen Delivery Oxygen Flow Rate Intake/Output Intake/Output: Intake & Output 07/05/22 07/06/22 07/07/22 07/08/22 23:59 23:59 23:59 23:59 Intake Total 1050 Balance 1050 Meds/Results Medications: Active Medications Generic Name Dose Route Start Last Admin Trade Name Freq PRN Reason Stop Dose Admin Acetaminophen 1,000 mg 07/07/22 18:12 07/08/22 05:01 Acetaminophen 500 Mg Tablet PO 1,000 mg Q6HR AGUSTO Administration Apixaban 2.5 mg 07/08/22 09:00 Apixaban 2.5 Mg Tablet PO 07/19/22 21:01 Q12HR AGUSTO Celecoxib 200 mg 07/08/22 09:00 Celecoxib 200 Mg Capsule PO DAILY AGUSTO Cephalexin HCl 500 mg 07/08/22 18:00 Cephalexin 500 Mg Capsule PO Q6HR AGUSTO Diphenhydramine HCl 25 mg 07/07/22 18:12 Diphenhydramine Hcl Inj 50 Mg/Ml Vial IV PUSH Q6H PRN Itching Famotidine 20 mg 07/07/22 21:00 07/07/22 20:40 Famotidine 20 Mg Tablet PO 20 mg Q12HR AGUSTO Administration Vancomycin HCl 1,000 mg in 250 mls @ 250 mls/hr 07/07/22 21:00 07/07/22 22:20 Vancomycin 1,000 Mg/D5w 250 Ml IVPB 07/08/22 09:59 Infused Q12H [facility] Infusion Cefazolin Sodium 1 gm in 50 mls @ 100 mls/hr 07/07/22 20:00 07/08/22 04:55 Ancef 1 Gm/D5w 50 Ml Pm IVPB 07/08/22 12:29 100 mls/hr Q8H AGUSTO Administration Meclizine HCl 12.5 mg 07/07/22 18:12 Meclizine Hcl 12.5 Mg Tablet PO TID PRN dizziness Naloxone HCl 0.1 mg 07/07/22 18:12 Naloxone Hcl 0.4 Mg/Ml Vial IV PUSH Q2M PRN Opiate Reversal Ondansetron HCl 4 mg 07/07/22 18:12 07/08/22 00:59 Ondansetron Inj 4 Mg/2 Ml Vial IV PUSH 4 mg Q4H PRN Administration Nausea And Vomiting Oxycodone HCl 5 mg 07/07/22 18:12 Oxycodone Hcl (*Crx) 5 Mg Tab Ir PO Q4H PRN Pain Rated 4-6 Oxycodone HCl 5 mg 07/07/22 18:12 07/08/22 04:55 Oxycodone Hcl (*Crx) 5 Mg Tab Ir PO 5 mg Q4HR AGUSTO
--- NOTE | 2022-07-08 06:20 | PM.DS ---
DS: Admitting Diagnosis Discharge Date 07/08 Admitting Diagnosis left knee DJD DS: Discharge Diagnosis Discharge Diagnosis (1) Total knee replacement status: Code(s): Z96.659 - Presence of unspecified artificial knee joint Status: Acute DS: Summary Hospital Course Hospital Course: 61-year-old male who underwent left total knee arthroplasty 07/08. Underwent the procedure without complications. Postoperatively he has been afebrile vital signs are stable. His dressing is dry. Neurovascularly he is intact. He is weight-bearing as tolerated. He is on Eliquis for DVT prophylaxis. Patient is also on Celebrex 200 mg once a day. Pain is well controlled oxycodone 5 mg as well as scheduled Tylenol. Patient was up to the chair the day of surgery and overall doing well. He is able do straight leg raise postop day 1. He is going to work with physical therapy and will be discharged home later on 07/08. Patient was advised to keep leg elevated home prevent swelling but also do his exercises on hourly basis. He should limit sitting in the chair to 30 minutes at a time 3 times a day. Has outpatient therapy starting later this week. Patient will also go home on 2 week course of Keflex as well as Senokot and MiraLax for constipation. Patient was advised any questions or concerns he is to call the office otherwise we will see him at his appointed dates Time Spent with Patient Time attestation: Total time spent providing and/or coordinating discharge services: Discharge Plan Discharge Patient Disposition: Home, Self-Care Discharge Instructions: JOE NAVARRO M.D [facility], [address] [address] POST-OPERATIVE DISCHARGE INSTRUCTIONS TOTAL KNEE ARTHROPLASTY 1. When resting, lie on back with leg elevated above heart to minimize swelling. Significant swelling could indicate a blood clot and if this occurs call the office (or go to the ER) to have a venous ultrasound. 2. Do exercise 5 times a day. 3. Do not sit with leg down except for meals. 4. Wound Care: Nursing will give additional dressings at discharge. Patient to change dressing at home 1 week from surgery, then maintain until seen in office. 5. May shower with dressing in place. 6. Follow weight bearing status instructions. IMPORTANT: Remember not to sit in the chair for more than 30 minutes at a time. As a rule, during the first 14 days after surgery, only sit in the chair to work on the chair knee bending stretch exercise, for meals or for use of the restroom. Sitting in the chair promotes significant swelling in the knee and leg which will make the knee stiff and more painful and which simulates having a blood clot in the veins of the leg. If this type of significant diffuse swelling occurs, an ultrasound at the hospital will be necessary to rule out a blood clot. Be up walking around with the walker for a few minutes every hour while awake and then rest laying on your back on the couch or in bed with your leg elevated on cushions or pillows. Do not rest in the chair. Stand Alone Forms: General Discharge Instructions Follow-up/Referrals: Joe Navarro MD [Physician] - Keep Reg. Scheduled Appt. Discharge Medications: New acetaminophen 500 mg Tablet 1,000 mg PO Q6HR Qty: 90 0RF Eliquis 2.5 mg Tablet 2.5 mg PO Q12HR Qty: 28 0RF celecoxib [Celebrex] 200 mg Capsule 200 mg PO DAILY Qty: 60 0RF sennosides-docusate sodium [Senokot-S] 8.6-50 mg Tablet 2 tab-cap PO BID Qty: 60 0RF cephalexin 500 mg Capsule 500 mg PO Q6HR Qty: 56 0RF polyethylene glycol 3350 [Miralax] 17 gram Powder In Packet 17 g PO QAM Qty: 30 0RF oxycodone 5 mg Tablet 5 mg PO Q4HR Qty: 40 0RF Continued meclizine 12.5 mg tablet 12.5 mg PO TID PRN (Reason: dizziness) Qty: 10 0RF rosuvastatin 20 mg tablet 20 mg PO DAILY Qty: 90 2RF Label Comments:
[2022-07-08 06:29] LABS: Basophils Percent Auto 0.2 % (0.2-1.2); Hematocrit 42.1 % (42.0-52.0); Hemoglobin 13.8 g/dL (14.0-18.0); Immature Granulocyte Absolute 0.09 K/mm3 (0.00-0.031); Immature Granulocyte Percent A 0.5 % (0-0.5); Lymphocytes Absolute Auto 0.98 K/mm3 (0.9-3.2); Lymphocytes Percent Auto 5.4 % (18.3-44.2); Mean Corpuscular HGB Conc 32.8 g/dl (32-36); Mean Corpuscular Hemoglobin 28.8 pg (26-34); Mean Corpuscular Volume 87.9 fl (80-100); Mean Platelet Volume 8.9 fl (7.4-10.4); Monocytes Absolute Auto 1.2 K/mm3 (0.1-0.6); Monocytes Percent Auto 6.4 % (2.6-8.5); Neutrophils Percent Auto 87.5 % (45.5-73.1); Platelet Count Result 282 k/mm3 (150-375); Red Blood Count 4.79 M/mm3 (4.6-6.20); Red Cell Distribution Width 13.3 % (11.5-14.5); White Blood Count 18.3 K/mm3 (4.5-10.0)
[2022-07-08 06:45] LABS: Anion Gap 7 mmol/L (8-16); Blood Urea Nitrogen 16 mg/dL (9-20); Calcium 8.7 mg/dL (8.4-10.2); Carbon Dioxide 29 mmol/L (22-30); Chloride 100 mmol/L (98-107); Estimated CRCL calculation 92 ml/min; Estimated Glomerular Filt Rate > 60; Glucose 157 mg/dL (65-110); Potassium 4.3 mmol/L (3.4-5.0); Sodium 136 mmol/L (137-145)
[2022-07-08 07:57] VITALS: BP 139/65; PULSE 73; RESP 16; TEMP 36.6; O2SAT 96
[2022-07-08] MEDS: ROSUVASTATIN 10 MG TABLET 20 MG PO (09:02)
[2022-07-08] MEDS: CELECOXIB 200 MG CAPSULE PO (09:02)
[2022-07-08] MEDS: APIXABAN 2.5 MG TABLET PO (09:03)
[2022-07-08] MEDS: SENNA/DOCUSATE SODIUM TABLET 2 TAB PO (09:03)
[2022-07-08] MEDS: FAMOTIDINE 20 MG TABLET PO (09:03)
[2022-07-08] MEDS: polyethylene glycoL 3350 17 GM POWD.PACK PO (09:05)
--- NOTE | 2022-07-08 09:38 | P.PNAN_ITS ---
Anes - Prog Note Post-Op Date/Time: 07/08/22 09:38 Cardiovascular status: normal Respiratory status: normal Airway patency: baseline Mental status: baseline Post-Op hydration status: normal Vital Signs: Last Vital Signs Temp 36.6 C 07/08/22 07:57 Pulse 73 07/08/22 07:57 Resp 16 07/08/22 07:57 BP 139/65 07/08/22 07:57 Pulse Ox 96 07/08/22 07:57 O2 Del Method Room Air 07/07/22 20:00 O2 Flow Rate 2 07/07/22 18:10 Pain Score (VAS): 08/15 I/O: Intake & Output 07/07/22 07/08/22 07/08/22 23:59 07:59 15:59 Intake Total 400 2350 0 Output Total 1950 Balance 400 400 0 Laboratory Tests 07/08/22 06:05 07/08/22 06:05 07/08/22 07/08/22 06:05 06:05 WBC 18.3 H RBC 4.79 Hgb 13.8 L Hct 42.1 MCV 87.9 MCH 28.8 MCHC 32.8 RDW 13.3 Plt Count 282 MPV 8.9 Immature Gran % (Auto) 0.5 Neut % (Auto) 87.5 H Lymph % (Auto) 5.4 L Isabella % (Auto) 6.4 Eos % (Auto) 0.0 Baso % (Auto) 0.2 Lymph # (Auto) 0.98 Isabella # (Auto) 1.2 H Eos # (Auto) 0.0 Baso # (Auto) 0.0 Abs Immat Gran (auto) 0.09 H Absolute Neuts (auto) 16.0 H Absolute Nucleated RBC 0.0 Nucleated RBC % 0.0 Sodium 136 L Potassium 4.3 Chloride 100 Carbon Dioxide 29 Anion Gap 7 L BUN 16 Creatinine 0.90 Estim Creat Clear Calc 92 Estimated GFR > 60 Glucose 157 H Calcium 8.7 Post-procedural complaints: none Patient Feedback: Patient satisfied with anesthetic care.
[2022-07-08 11:57] VITALS: BP 117/56; PULSE 76; RESP 16; TEMP 36.8; O2SAT 98
== END 2022-07-08 13:20 | disposition home or self-care (01) ==
LOC: ANHSURGERY 08:39 → ANH3MEDSUR 18:17
PROVIDERS: Physician Assistant Surgical; PCP Family Medicine; Visit Provider Orthopaedic Surgery
PROC: (CPT 27447; principal; 2022-07-07 11:30)
DX: M17.0 Bilateral primary osteoarthritis of knee (principal); Z87.891 Personal history of nicotine dependence; E66.9 Obesity, unspecified; Z68.34 Body mass index [BMI] 34.0-34.9, adult
CPT/HCPCS: 27447; 20610; 36415; 73560; 80048; 85025; 97110; 97161; 97165; 97535; A9270; C1713; C1776; J0171; J0330; J0690; J1040; J1100; J1170; J1885; J2250; J2270; J2370; J2405; J2704; J2710; J2795; J3010; J3370; J7120

== ENCOUNTER 2022-07-24 08:19 | Outpatient (CLI) | payer BC, SELFPAY ==
[2022-07-24 20:10] LABS: Alanine Aminotransferase 29 U/L (6-50); Albumin Level 4.4 g/dL (3.5-5.1); Alkaline Phosphatase 94 U/L (38-126); Anion Gap 4 mmol/L (8-16); Aspartate Amino Transferase 25 U/L (17-59); Bilirubin,Total 0.6 mg/dL (0.2-1.3); Blood Urea Nitrogen 22 mg/dL (9-20); Calcium 9.1 mg/dL (8.4-10.2); Carbon Dioxide 31 mmol/L (22-30); Chloride 100 mmol/L (98-107); Cholesterol 184 mg/dL (0-200); Estimated Glomerular Filt Rate > 60; Glucose 113 mg/dL (65-110); HDL Direct 49 mg/dL; Potassium 4.6 mmol/L (3.4-5.0); Sodium 135 mmol/L (137-145); Triglycerides 172 mg/dL (<150)
[2022-07-24 20:14] LABS: LDL Cholesterol Direct 80 mg/dL
== END 2022-07-24 08:20 | disposition home or self-care (01) ==
LOC: ANHGOSHLAB 08:20
PROVIDERS: PCP Family Medicine; Visit Provider Internal Medicine Cardiovascular Disease
DX: E78.2 Mixed hyperlipidemia (principal)
CPT/HCPCS: 36415; 80053; 80061

== ENCOUNTER 2022-09-29 01:29 | Day surgery (SDC) | payer BC, SELFPAY ==
[2022-09-25 12:16] VITALS: BMI 34.1
--- NOTE | 2022-09-25 12:20 | PC.NURSE ---
Report to the Outpatient Waiting Room, entrance under the green pavilion located off [facility], at time 1130 on date 09/29/22. Planned Procedure Time: 1330. Time changes happen often and if your time is changed the preop area will call you the afternoon before. - You and your visitor will be asked to self-screen and do not enter if you have any COVID symptoms. - A mask is optional within the hospital at this time. Patients may have clear liquids (water, carbonated beverages, clear teas, apple juice) until 3 hours prior to surgery with a maximum of 20 ounces. - No food from midnight until time of surgery Take the following medications with a SIP of water the morning of surgery: NONE DO NOT STOP ANY OF YOUR OTHER PRESCRIPTION MEDICATIONS PRIOR TO SURGERY EXCEPT THE FOLLOWING Medications to discontinue per physician: VITAMINS/SUPPLEMENTS Date to take last dose: 09/25/22 Please no make-up, nail [place], hairspray, perfume, deodorant, or body powder the day of surgery. No jewelry (including any body piercings) or valuables the day of surgery, leave them at home. Please take a shower or bath the night before, or the morning of, surgery with an antibacterial soap. Wear comfortable, loose fitting clothing. - Jewelry must be removed prior to entering the operating room. Rings and piercings that are not removed may be cut off. - The hospital will not accept responsibility for valuables. - Please leave all valuables, including medications, at home the day of surgery. If you are going home after surgery, a licensed route sales delivery drivers supervisor must drive you home. - NO public transportation without another adult if you receive anesthesia. - We recommend that an adult stay with you for 24 hours following discharge. - We also recommend that you do not drive, make important decision, drink alcoholic beverages, or take any drugs that were not prescribed by your health care provider for at least 24 hours after your discharge time. Follow any additional instructions given to you from your surgeon. If you or anyone in your household have experienced Covid symptoms in the past week, please notify your surgeon or the nurse liaison at the phone number below for possible testing. Telephone instructions given to FLORI CARTER and asked if any additional questions and then verbalized understanding. Patient advised to call surgeon office or pre surgery nurse liaison [phone] if any additional questions.
[2022-09-29] VITALS (7 sets, daily range): BP systolic 124–153; BP diastolic 72–87; PULSE 69–78; RESP 16–20; TEMP 36.2–36.6; O2SAT 98–100
[2022-09-29] MEDS: LACTATED RINGERS 1,000 ML 30 ML IV CONT (12:00)
--- NOTE | 2022-09-29 12:05 | WPDHPUPDATE1 ---
History and Physical Update Update Date/Time: 09/29/22 12:05 History and Physical has been reviewed, including an updated exam of the patient. There are NO changes in the patient's condition. Risks, benefits, and alternatives have been discussed and questions answered. Patient agrees to proceed with procedure.
[2022-09-29] MEDS: KETOROLAC 15 MG/ML VIAL (*BKC) IV PUSH (12:21)
[2022-09-29] MEDS: ACETAMINOPHEN 500 MG TABLET 1000 MG PO (12:21)
--- NOTE | 2022-09-29 13:18 | WPDANESEPPF ---
Anes - Initial Pre Proc Eval Procedure: Operation Date: 09/29/22 13:30 Proposed Procedures p Rectal Exam Under Anesthesia, Hemorrhoidectomy - Estrella Alfaro MD Date/Time: 09/29/22 13:18 Surgeon: Estrella Alfaro MD Pre Op Diagnosis: Thrombosed External Hemorrhoid Patient Data Age: 62 Gender: M Height: 1.75 m Weight: 102 kg Last Vital Signs Temp 36.6 C 09/29/22 12:18 Pulse 78 09/29/22 12:18 Resp 16 09/29/22 12:18 BP 128/73 09/29/22 12:18 Pulse Ox 98 09/29/22 12:18 O2 Del Method Room Air 09/29/22 12:18 Allergies Allergy/AdvReac Type Severity Reaction Status Date / Time atorvastatin Allergy Unknown leg pain Verified 09/29/22 12:17 Penicillins Allergy Unknown Unknown Verified 09/29/22 12:17 simvastatin Allergy Unknown myalgias Verified 09/29/22 12:17 Home Medications Medication Instructions Recorded Confirmed Type rosuvastatin 20 mg tablet 20 mg PO DAILY #90 tabs 03/20/22 09/29/22 Rx omega 6-rjx-zqv-fish oil 1,000 mg 1 cap PO DAILY 07/25/22 09/29/22 History (120 mg-180 mg) capsule (Fish Oil) hydrocortisone 2.5 % topical cream 1 applic topical BID PRN 09/18/22 09/29/22 Rx hemorrhoids #30 grams Patient hx anesthesia problems: none Family hx anesthesia problems: none Results Review: All pre-operative results and documents have been reviewed as part of the pre-operative evaluation. [facility] Past Medical History Medical History COVID-19 Mixed hyperlipidemia Surgical History Surgical History History of appendectomy (~1982) History of esophagogastroduodenoscopy (~02/02/12) History of hernia repair (~2009) umbilical History of left knee replacement Family History Family History Mother Diabetes mellitus Family history of elevated blood lipids Sibling Family history of elevated blood lipids Cerebrovascular accident Malignant neoplasm of prostate Family history of coronary artery disease Family history of malignant neoplasm of esophagus Grandparent Family history of coronary artery disease Father Family history of malignant neoplasm of esophagus Social History Social History Smoking packs per day: 1 Smoking cigarettes per day: 20.0 Years smoked: 5 Smoking pack-years: 5.00 Smoking status: Former smoker Tobacco type: cigarettes Smoking end date: 06/08/04 Additional smoking assessment comments: DENIES ANY FORM OF TOBACCO USE Alcohol intake: never Drinks per week: 1 Alcohol use details: 2 DRINKS PER MONTH Substance use: never Substance use type: does not use Lack of Transportation: No Lack of Food: Never True Current Housing: I Have Housing Concerned About Future Housing: No Difficulty Paying Gas/Electric Bills: No Difficulty Paying for Meds: No Currently Unemployed: No Education: Trade/Vocational Certificate Difficulty w/ Childcare or Family Care: No Living arrangements: with family Spiritual care concerns: No Anes - Eval Final PreProcedure Day of Procedure 09/29/22 13:18 Patient weight: obese Heart: regular rate and rhythm Lungs: clear to auscultation Airway: Mallampati scale class II Neurological: alert and oriented Last oral intake: >/= 8 hours ASA classification: II Emergent: no Anesthetic plan: proceed Anesthesia type and monitoring: general ETT and standard monitoring Results Review: All pre-operative results and documents have been reviewed as part of the pre-operative evaluation. Informed Consent: The patient's anesthetic plan and its attendant risks and benefits were discussed with the patient/family/POA. Questions were solicited and answers provided to the satisfaction of the patient/family/POA.
[2022-09-29] MEDS: ceFAZolin 2 GM/D5W 50 ML 2 GM/50 ML BAG IVPB (13:26)
[2022-09-29] MEDS: LIDOCAINE HCL 1% LOCAL INJ 20 ML VIAL INFILTRATE (13:46)
[2022-09-29] MEDS: LIDOCAINE HCL 2% GEL UROJET 10 ML PKG MUCOUS MEM (13:54)
--- NOTE | 2022-09-29 14:17 | W.PM.PROC2 ---
Procedure Note - Detailed Date of Procedure 09/29/22 Pre-op Diagnosis thrombosed external hemorrhoid, multiple external hemorrhoids Post-op Diagnosis Same Procedure Performed Exam under anesthesia, external hemorrhoidectomy involving left lateral and right anterior positions Surgeon Estrella Alfaro MD Anesthesia General Indications 62 y/o M c multiple external hemorrhoids, including large thrombosed left lateral hemorrhoid, causing pain, bleeding refractory to conservative measures. Findings multiple external hemorrhoids predominately in L lateral and R anterior, large L lateral thrombosed hemorrhoid Description of Procedure The patient was taken to the operating room and placed in the modified lithotomy position. After adequate induction of general anesthesia, the patient was prepped and draped in the normal sterile fashion. A time-out was then done to verify the patient's identity, as well as the procedure being performed. I began by doing a digital exam. There was noted to be multiple external hemorrhoids, however no internal hemorrhoids were noted. Of note, the patient had a large thrombosed left lateral external hemorrhoid. At this point, a bilateral pudendal block was done. Then used the lone Star retractor to further evaluate the anal canal as well as rectum, other than external hemorrhoids no other pathology was noted. I then began excising the external hemorrhoids using the hand-held LigaSure device. The hemorrhoids were noted to be in the left lateral and right anterior positions. Multiple hemorrhoids were excised using the LigaSure. The specimens will be sent to pathology for further review. Hemostasis was noted at all excision sites. I then placed a piece of Gelfoam covered with lidocaine jelly into the rectal vault. The patient tolerated the procedure and was extubated in the operating room postop. He will be transferred to the recovery room in stable condition. Implants Gelfoam covered with lidocaine jelly in the rectal vault Estimated Blood Loss 10 Drains No Packing Yes Pathology Yes Complications No immediate complications Condition Stable Disposition PACU [facility] Billing Surgery - Charge Forward: Surgery Billing
== END 2022-09-29 15:27 | disposition home or self-care (01) ==
PROVIDERS: PCP Family Medicine; Visit Provider Surgery
PROC: (CPT 46250; principal; 2022-09-29 13:30)
DX: K64.5 Perianal venous thrombosis (principal); K64.4 Residual hemorrhoidal skin tags; E78.2 Mixed hyperlipidemia; Z87.891 Personal history of nicotine dependence; E66.9 Obesity, unspecified; Z68.33 Body mass index [BMI] 33.0-33.9, adult
CPT/HCPCS: 46250; 88304; A9270; J0690; J1100; J1885; J2250; J2370; J2405; J2704; J3010; J7120

== ENCOUNTER 2022-11-05 09:02 | Outpatient (CLI) | payer BC, SELFPAY ==
[2022-11-05 16:19] LABS: Cholesterol 177 mg/dL (0-200); HDL Direct 38 mg/dL; Triglycerides 206 mg/dL (<150)
[2022-11-05 16:30] LABS: LDL Cholesterol Direct 86 mg/dL
== END 2022-11-05 09:03 | disposition home or self-care (01) ==
LOC: ANHGOSHLAB 09:04
PROVIDERS: PCP Family Medicine; Visit Provider Internal Medicine Cardiovascular Disease
DX: E78.2 Mixed hyperlipidemia (principal)
CPT/HCPCS: 36415; 80061

== ENCOUNTER 2022-11-12 09:17 | Outpatient (CLI) | payer BC, SELFPAY ==
[2022-11-12 19:25] LABS: Hematocrit 46.3 % (42.0-52.0); Hemoglobin 14.7 g/dL (14.0-18.0); Mean Corpuscular HGB Conc 31.7 g/dl (32-36); Mean Corpuscular Hemoglobin 28.1 pg (26-34); Mean Corpuscular Volume 88.5 fl (80-100); Mean Platelet Volume 9.5 fl (7.4-10.4); Platelet Count Result 332 k/mm3 (150-375); Red Blood Count 5.23 M/mm3 (4.6-6.20); Red Cell Distribution Width 13.3 % (11.5-14.5); White Blood Count 7.5 K/mm3 (4.5-10.0)
[2022-11-12 21:03] LABS: Alanine Aminotransferase 21 U/L (6-50); Albumin Level 4.2 g/dL (3.5-5.1); Alkaline Phosphatase 84 U/L (38-126); Anion Gap 2 mmol/L (8-16); Aspartate Amino Transferase 27 U/L (17-59); Bilirubin,Total 0.5 mg/dL (0.2-1.3); Blood Urea Nitrogen 11 mg/dL (9-20); Calcium 9.1 mg/dL (8.4-10.2); Carbon Dioxide 33 mmol/L (22-30); Chloride 103 mmol/L (98-107); Cholesterol 163 mg/dL (0-200); Estimated Glomerular Filt Rate > 60; Glucose 127 mg/dL (65-110); HDL Direct 40 mg/dL; Potassium 4.5 mmol/L (3.4-5.0); Sodium 138 mmol/L (137-145); Triglycerides 170 mg/dL (<150)
[2022-11-12 21:14] LABS: LDL Cholesterol Direct 92 mg/dL
[2022-11-12 21:34] LABS: Prostate Specific Antigen 0.6 ng/mL (< OR = 4.0)
[2022-11-12 21:43] LABS: Hemoglobin A1C 6.7 % (<5.7)
== END 2022-11-12 09:18 | disposition home or self-care (01) ==
LOC: ANHGOSHLAB 09:19
PROVIDERS: PCP Family Medicine; Visit Provider Family Medicine
DX: E78.2 Mixed hyperlipidemia (principal); Z12.5 Encounter for screening for malignant neoplasm of prostate; E88.81 Metabolic syndrome and other insulin resistance; E66.9 Obesity, unspecified; E11.9 Type 2 diabetes mellitus without complications
CPT/HCPCS: 36415; 80053; 80061; 83036; 84153; 84443; 85027; G0103

== ENCOUNTER 2023-05-25 08:46 | Outpatient (CLI) | payer BC, SELFPAY ==
[2023-05-25 20:42] LABS: Alanine Aminotransferase 26 U/L (6-50); Albumin Level 4.1 g/dL (3.5-5.1); Alkaline Phosphatase 81 U/L (38-126); Anion Gap 9 mmol/L (8-16); Aspartate Amino Transferase 31 U/L (17-59); Bilirubin,Total 0.6 mg/dL (0.2-1.3); Blood Urea Nitrogen 13 mg/dL (9-20); Calcium 9.9 mg/dL (8.4-10.2); Carbon Dioxide 29 mmol/L (22-30); Chloride 99 mmol/L (98-107); Estimated Glomerular Filt Rate > 60; Glucose 129 mg/dL (65-110); Potassium 4.7 mmol/L (3.4-5.0); Sodium 137 mmol/L (137-145)
[2023-05-25 21:14] LABS: Hemoglobin A1C 7.3 % (<5.7)
== END 2023-05-25 08:47 | disposition home or self-care (01) ==
LOC: ANHGOSHLAB 08:48
PROVIDERS: PCP Family Medicine; Visit Provider Family Medicine
DX: E78.2 Mixed hyperlipidemia (principal); Z12.5 Encounter for screening for malignant neoplasm of prostate; E66.9 Obesity, unspecified; E11.9 Type 2 diabetes mellitus without complications; E88.810 Metabolic syndrome
CPT/HCPCS: 36415; 80053; 83036

== ENCOUNTER 2023-05-26 08:56 | Outpatient (CLI) | payer BC, SELFPAY ==
[2023-05-26 11:49] LABS: Cholesterol 174 mg/dL (0-200); HDL Direct 39 mg/dL; Triglycerides 180 mg/dL (<150)
[2023-05-26 11:59] LABS: LDL Cholesterol Direct 86 mg/dL
== END 2023-05-26 08:57 | disposition home or self-care (01) ==
LOC: ANHGOSHLAB 08:57
PROVIDERS: PCP Family Medicine; Visit Provider Family Medicine
DX: E11.9 Type 2 diabetes mellitus without complications (principal); E66.9 Obesity, unspecified; E78.2 Mixed hyperlipidemia; Z12.5 Encounter for screening for malignant neoplasm of prostate; I10 Essential (primary) hypertension
CPT/HCPCS: 36415; 80061

== ENCOUNTER 2023-08-14 01:03 | Day surgery (SDC) | payer BC, SELFPAY ==
[2023-08-03 13:59] VITALS: BMI 32.8
[2023-08-14 08:21] VITALS: BP 122/71; PULSE 65; RESP 18; TEMP 36.6; O2SAT 97
[2023-08-14] MEDS: LACTATED RINGERS 1,000 ML 150 ML IV CONT (08:31)
--- NOTE | 2023-08-14 08:42 | WPDANESEPPF ---
Anes - Initial Pre Proc Eval Procedure: Operation Date: 08/14/23 09:30 Proposed Procedures p Colonoscopy - Osvaldo Mckoy MD Date/Time: 08/14/23 08:42 Surgeon: Osvaldo Mckoy MD Pre Op Diagnosis: other fecal abnormalities Patient Data Age: 63 Gender: M Height: 1.75 m Weight: 100.8 kg Last Vital Signs Temp 98 F 08/14/23 08:21 Pulse 65 08/14/23 08:21 Resp 18 08/14/23 08:21 BP 122/71 08/14/23 08:21 Pulse Ox 97 08/14/23 08:21 O2 Del Method Room Air 08/14/23 08:21 Allergies Allergy/AdvReac Type Severity Reaction Status Date / Time atorvastatin Allergy Unknown leg pain Verified 08/14/23 08:19 Penicillins Allergy Unknown Unknown Verified 08/14/23 08:19 simvastatin Allergy Unknown myalgias Verified 08/14/23 08:19 Home Medications Medication Instructions Recorded Confirmed Type lisinopril 5 mg tablet 5 mg PO DAILY #90 tabs 07/27/23 08/07/23 Rx omega-3 fatty acids-vitamin E 1 cap PO DAILY 08/03/23 08/07/23 History 1,000 mg capsule rosuvastatin 20 mg tablet 20 mg PO DAILY 08/03/23 08/07/23 History Patient hx anesthesia problems: none Family hx anesthesia problems: none Results Review: All pre-operative results and documents have been reviewed as part of the pre-operative evaluation. [facility] Past Medical History Medical History COVID-19 Mixed hyperlipidemia Surgical History Surgical History History of appendectomy (~1982) History of esophagogastroduodenoscopy (~02/02/12) History of hernia repair (~2009) umbilical History of left knee replacement S/P hemorrhoidectomy exam under anesthesia, external hemorrhoidectomy involving left lateral and right anterior positions 09/29/22 Family History Family History Mother Diabetes mellitus Family history of elevated blood lipids Sibling Family history of elevated blood lipids Cerebrovascular accident Malignant neoplasm of prostate Family history of coronary artery disease Family history of malignant neoplasm of esophagus Grandparent Family history of coronary artery disease Father Family history of malignant neoplasm of esophagus Social History Social History Smoking packs per day: 1 Smoking cigarettes per day: 20.0 Years smoked: 5 Smoking pack-years: 5.00 Smoking status: Former smoker Tobacco type: cigarettes Smoking end date: 06/08/04 Alcohol intake: current Drinks per week: 1 Alcohol use details: 2 DRINKS PER MONTH Substance use: never Substance use type: does not use Lack of Transportation: No Lack of Food: Never True Current Housing: I Have Housing Concerned About Future Housing: No Difficulty Paying Gas/Electric Bills: No Difficulty Paying for Meds: No Currently Unemployed: No Education: Trade/Vocational Certificate Difficulty w/ Childcare or Family Care: No Living arrangements: with family Spiritual care concerns: No Anes - Eval Final PreProcedure Day of Procedure 08/14/23 08:42 Patient weight: obese Heart: regular rate and rhythm Lungs: clear to auscultation Airway: Mallampati scale class II Neurological: alert and oriented Last oral intake: >/= 8 hours ASA classification: II Emergent: no Anesthetic plan: proceed Anesthesia type and monitoring: general GIVS and standard monitoring Results Review: All pre-operative results and documents have been reviewed as part of the pre-operative evaluation. Informed Consent: The patient's anesthetic plan and its attendant risks and benefits were discussed with the patient/family/POA. Questions were solicited and answers provided to the satisfaction of the patient/family/POA.
--- NOTE | 2023-08-14 09:15 | PM.HPGS ---
History of Present Illness History of Present Illness Consent: Risks, benefits, and alternatives have been discussed and questions answered. Patient agrees to proceed with procedure. Chief complaint: other fecal abnormalities Narrative: Ian Murillo is a 63 year old male here for first colonoscopy, had + cologuard Review of Systems Constitutional: Constitutional: Denies headache(s) and Denies weakness Eyes: Eyes: Denies blurry vision ENT: Reports Normal hearing present, Denies headache(s) and Denies neck pain Cardiovascular: Cardiovascular: Denies chest pain and Denies dyspnea Respiratory: Respiratory: Denies dyspnea Gastrointestinal: Gastrointestinal: Reports no additional gastrointestinal complaints Genitourinary: Genitourinary: Denies dysuria Musculoskeletal: Musculoskeletal: Denies neck pain Integumentary/Breasts: Skin/Breast: Denies dry skin Neurologic: Reports Normal hearing present, Denies headache(s) and Denies weakness Psychiatric: Psychiatric: Denies anxiety Endocrine: Endocrine: Denies change in body appearance Hematologic/Lymphatic: Hematologic/Lymphatic: Denies easy bleeding Allergic/Immunologic: Allergic/Immunologic: Denies urticaria PMF Past Medical History Medical History COVID-19 Mixed hyperlipidemia Surgical History Surgical History History of appendectomy (~1982) History of esophagogastroduodenoscopy (~02/02/12) History of hernia repair (~2009) umbilical History of left knee replacement S/P hemorrhoidectomy exam under anesthesia, external hemorrhoidectomy involving left lateral and right anterior positions 09/29/22 Family History Family History Mother Diabetes mellitus Family history of elevated blood lipids Sibling Family history of elevated blood lipids Cerebrovascular accident Malignant neoplasm of prostate Family history of coronary artery disease Family history of malignant neoplasm of esophagus Grandparent Family history of coronary artery disease Father Family history of malignant neoplasm of esophagus Social History Social History Smoking packs per day: 1 Smoking cigarettes per day: 20.0 Years smoked: 5 Smoking pack-years: 5.00 Smoking status: Former smoker Tobacco type: cigarettes Smoking end date: 06/08/04 Alcohol intake: current Drinks per week: 1 Alcohol use details: 2 DRINKS PER MONTH Substance use: never Substance use type: does not use Lack of Transportation: No Lack of Food: Never True Current Housing: I Have Housing Concerned About Future Housing: No Difficulty Paying Gas/Electric Bills: No Difficulty Paying for Meds: No Currently Unemployed: No Education: Trade/Vocational Certificate Difficulty w/ Childcare or Family Care: No Living arrangements: with family Spiritual care concerns: No Meds Home Medications and Allergies Home Medications Medication Instructions Recorded Confirmed Type lisinopril 5 mg tablet 5 mg PO DAILY #90 tabs 07/27/23 08/07/23 Rx omega-3 fatty acids-vitamin E 1 cap PO DAILY 08/03/23 08/07/23 History 1,000 mg capsule rosuvastatin 20 mg tablet 20 mg PO DAILY 08/03/23 08/07/23 History Allergies Allergy/AdvReac Type Severity Reaction Status Date / Time atorvastatin Allergy Unknown leg pain Verified 08/14/23 08:19 Penicillins Allergy Unknown Unknown Verified 08/14/23 08:19 simvastatin Allergy Unknown myalgias Verified 08/14/23 08:19 Vital Signs Vital Signs - 24 hr 08/14/23 08:21 Temperature 98 F Pulse Rate 65 Respiratory Rate 18 Blood Pressure 122/71 Pulse Oximetry 97 Oxygen Delivery Room Air Exam Const: General: comfortable and no acute distress HENMT: Face/Nose/Sinus: Normal nares present Eyes: General:
[2023-08-14 09:33] VITALS: BP 111/68; PULSE 60; RESP 16; O2SAT 98
[2023-08-14 09:43] VITALS: BP 133/75; PULSE 60; RESP 21; O2SAT 97
[2023-08-14 09:53] VITALS: BP 137/80; PULSE 60; RESP 29; O2SAT 100
== END 2023-08-14 10:01 | disposition home or self-care (01) ==
PROVIDERS: PCP Family Medicine; Visit Provider Internal Medicine Gastroenterology
PROC: 0DJD8ZZ Inspection of Lower Intestinal Tract, Via Natural or Artificial Opening Endoscopic (ICD-10-PCS; CPT 45378; principal; 2023-08-14 09:30)
DX: R19.5 Other fecal abnormalities (principal); D12.2 Benign neoplasm of ascending colon; D12.5 Benign neoplasm of sigmoid colon; E78.2 Mixed hyperlipidemia; Z87.891 Personal history of nicotine dependence
CPT/HCPCS: 45385; 88305; J2704; J7120

== ENCOUNTER 2023-10-18 17:18 | Emergency (ER) | payer BC, SELFPAY ==
[2023-10-18 17:27] VITALS: BP 140/86; PULSE 67; RESP 16; TEMP 36.9; O2SAT 98
--- NOTE | 2023-10-18 17:32 | ED.SKABFB ---
HPI - Skin/Abscess/Foreign Bdy General Chief complaint: Skin/Abscess/Foreign Body Stated complaint: Bite Left arm Source: patient Mode of arrival: ambulatory Limitations: no limitations History of Present Illness HPI narrative: 63-year-old male presented for complaint of insect bite to the left elbow. First noticed yesterday. Endorses mild redness and itching. He took Benadryl. Denies lip, tongue, or throat swelling, shortness of breath or wheezing. Denies changes to soap, detergent, lotion, or any other exposures. No one else in the house or any contacts with similar symptoms. Related Data Home Medications Medication Instructions Recorded Confirmed omega-3 fatty acids-vitamin E 1 cap PO DAILY 08/03/23 08/07/23 1,000 mg capsule Allergies Allergy/AdvReac Type Severity Reaction Status Date / Time atorvastatin Allergy Unknown leg pain Verified 10/18/23 17:33 Penicillins Allergy Unknown Unknown Verified 10/18/23 17:33 simvastatin Allergy Unknown myalgias Verified 10/18/23 17:33 Review of Systems Review of Systems: CONSTITUTIONAL: Denies body aches, fever, chills, or sweats. EYES: Denies visual changes, redness, or discharge. ENT: Denies rhinorrhea, congestion CARDIOVASCULAR: Denies chest pain, palpitations, or edema. RESPIRATORY: Denies cough or dyspnea. GASTROINTESTINAL: Denies abdominal pain, nausea, vomiting, or diarrhea. SKIN: Reports insect bite left elbow MUSCULOSKELETAL: Denies back pain, joint pain, or myalgia. NEUROLOGIC: Denies headache, numbness, tingling, or weakness. PMFSH Past Medical History Medical History COVID-19 Mixed hyperlipidemia Surgical History Surgical History History of appendectomy (~1982) History of esophagogastroduodenoscopy (~02/02/12) History of hernia repair (~2009) umbilical History of left knee replacement S/P hemorrhoidectomy exam under anesthesia, external hemorrhoidectomy involving left lateral and right anterior positions 09/29/22 Family History Family History Mother Diabetes mellitus Family history of elevated blood lipids Sibling Family history of elevated blood lipids Cerebrovascular accident Malignant neoplasm of prostate Family history of coronary artery disease Family history of malignant neoplasm of esophagus Grandparent Family history of coronary artery disease Father Family history of malignant neoplasm of esophagus Social History Social History Smoking packs per day: 1 Smoking cigarettes per day: 20.0 Years smoked: 5 Smoking pack-years: 5.00 Smoking status: Former smoker Tobacco type: cigarettes Smoking end date: 06/08/04 Alcohol intake: current Drinks per week: 1 Alcohol use details: 2 DRINKS PER MONTH Substance use: never Substance use type: does not use Lack of Transportation: No Lack of Food: Never True Current Housing: I Have Housing Concerned About Future Housing: No Difficulty Paying Gas/Electric Bills: No Difficulty Paying for Meds: No Currently Unemployed: No Education: Trade/Vocational Certificate Difficulty w/ Childcare or Family Care: No Living arrangements: with family Spiritual care concerns: No Comments At time of signature, I have reviewed and agree with nursing past medical, surgical, social and family history unless otherwise noted. Please see nursing chart for further information. There is no relevant family history pertinent to the presenting complaint Exam Narrative: GENERAL: Well-appearing EYES: conjunctivae clear, and EOMI. ENT: Mucous membranes moist. Oropharynx without edema, erythema or lesions. NECK: Supple. No lymphadenopathy CHEST: Clear to auscultation. HEART: Regular rate and rhythm. SKIN: Warm, dry. Left elbow with appro
[2023-10-18 17:33] VITALS: BP 140/86; PULSE 67; RESP 16; TEMP 36.9; O2SAT 98
== END 2023-10-18 17:36 | disposition home or self-care (01) ==
PROVIDERS: Emergency Provider Nurse Practitioner Family; PCP Family Medicine
DX: S50.362A Insect bite (nonvenomous) of left elbow, initial encounter (principal); W57.XXXA Bitten or stung by nonvenomous insect and other nonvenomous arthropods, initial encounter; E78.2 Mixed hyperlipidemia; Z86.16 Personal history of COVID-19; Z96.652 Presence of left artificial knee joint; Z87.891 Personal history of nicotine dependence
CPT/HCPCS: 99213; G0463

== ENCOUNTER 2023-11-23 08:25 | Outpatient (CLI) | payer BC, SELFPAY ==
[2023-11-23 13:36] LABS: Hematocrit 47.6 % (42.0-52.0); Hemoglobin 15.2 g/dL (14.0-18.0); Mean Corpuscular HGB Conc 31.9 g/dl (32-36); Mean Corpuscular Hemoglobin 28.6 pg (26-34); Mean Corpuscular Volume 89.5 fl (80-100); Mean Platelet Volume 9.5 fl (7.4-10.4); Platelet Count Result 291 k/mm3 (150-375); Red Blood Count 5.32 M/mm3 (4.6-6.20); Red Cell Distribution Width 13.5 % (11.5-14.5); White Blood Count 7.1 K/mm3 (4.5-10.0)
[2023-11-23 13:48] LABS: Alanine Aminotransferase 18 U/L (6-50); Albumin Level 4.1 g/dL (3.5-5.1); Alkaline Phosphatase 81 U/L (38-126); Anion Gap 7 mmol/L (4-12); Aspartate Amino Transferase 74 U/L (17-59); Bilirubin,Total 0.7 mg/dL (0.2-1.3); Blood Urea Nitrogen 14 mg/dL (9-20); Calcium 9.1 mg/dL (8.4-10.2); Carbon Dioxide 28 mmol/L (22-30); Chloride 102 mmol/L (98-107); Cholesterol 173 mg/dL (0-200); Estimated Glomerular Filt Rate > 60; Glucose 131 mg/dL (65-110); HDL Direct 39 mg/dL; Potassium 3.9 mmol/L (3.4-5.0); Sodium 137 mmol/L (137-145); Triglycerides 200 mg/dL (<150)
[2023-11-23 13:59] LABS: LDL Cholesterol Direct 94 mg/dL
[2023-11-23 14:19] LABS: Prostate Specific Antigen 0.8 ng/mL (< OR = 4.0)
[2023-11-23 14:52] LABS: Hemoglobin A1C 6.7 % (<5.7)
== END 2023-11-23 08:26 | disposition home or self-care (01) ==
LOC: ANHGOSHLAB 08:26
PROVIDERS: PCP Family Medicine; Visit Provider Family Medicine
DX: E78.2 Mixed hyperlipidemia (principal); E11.9 Type 2 diabetes mellitus without complications; I10 Essential (primary) hypertension; Z12.5 Encounter for screening for malignant neoplasm of prostate; E66.9 Obesity, unspecified
CPT/HCPCS: 36415; 80053; 80061; 83036; 84153; 84443; 85027; G0103

== ENCOUNTER 2024-03-18 09:17 | Outpatient (CLI) | payer BC, SELFPAY ==
[2024-03-18 16:32] LABS: Hematocrit 46.3 % (42.0-52.0); Hemoglobin 14.9 g/dL (14.0-18.0); Mean Corpuscular HGB Conc 32.2 g/dl (32-36); Mean Corpuscular Hemoglobin 29.4 pg (26-34); Mean Corpuscular Volume 91.3 fl (80-100); Mean Platelet Volume 9.6 fl (7.4-10.4); Platelet Count Result 268 k/mm3 (150-375); Red Blood Count 5.07 M/mm3 (4.6-6.20); Red Cell Distribution Width 13.5 % (11.5-14.5); White Blood Count 6.9 K/mm3 (4.5-10.0)
[2024-03-18 16:58] LABS: Creatinine Urine 149.7 mg/dL
[2024-03-18 17:00] LABS: Alanine Aminotransferase 21 U/L (6-50); Albumin Level 3.9 g/dL (3.5-5.1); Alkaline Phosphatase 69 U/L (38-126); Anion Gap 5 mmol/L (4-12); Aspartate Amino Transferase 43 U/L (17-59); Bilirubin,Total 0.5 mg/dL (0.2-1.3); Blood Urea Nitrogen 16 mg/dL (9-20); Calcium 9.1 mg/dL (8.4-10.2); Carbon Dioxide 31 mmol/L (22-30); Chloride 101 mmol/L (98-107); Cholesterol 136 mg/dL (0-200); Estimated Glomerular Filt Rate > 60; Glucose 123 mg/dL (65-110); HDL Direct 40 mg/dL; Potassium 4.9 mmol/L (3.4-5.0); Sodium 137 mmol/L (137-145); Triglycerides 124 mg/dL (<150)
[2024-03-18 17:11] LABS: LDL Cholesterol Direct 57 mg/dL
[2024-03-18 17:44] LABS: Hemoglobin A1C 6.9 % (<5.7)
== END 2024-03-18 09:18 | disposition home or self-care (01) ==
LOC: ANHGOSHLAB 09:18
PROVIDERS: PCP Family Medicine; Visit Provider Family Medicine
DX: E11.9 Type 2 diabetes mellitus without complications (principal); E66.9 Obesity, unspecified; E78.2 Mixed hyperlipidemia; I10 Essential (primary) hypertension; R03.0 Elevated blood-pressure reading, without diagnosis of hypertension
CPT/HCPCS: 36415; 80053; 80061; 82043; 83036; 84443; 85027

== ENCOUNTER 2024-06-15 14:16 | Outpatient (CLI) | payer BC, SELFPAY ==
[2024-06-15 20:26] LABS: Influenza A QL RT-PCR Negative (Negative); Influenza B QL RT-PCR Negative (Negative); RSV RNA, RT-PCR Negative (Negative); SARS-CoV-2 RNA PCR Positive (Negative)
== END 2024-06-15 14:17 | disposition home or self-care (01) ==
PROVIDERS: PCP Family Medicine; Visit Provider Nurse Practitioner
DX: U07.1 COVID-19 (principal); R50.9 Fever, unspecified
CPT/HCPCS: 87637

== ENCOUNTER 2024-07-21 08:34 | Outpatient (CLI) | payer BC, SELFPAY ==
--- OUTSIDE RECORDS SUMMARY | 2024-07-21 08:37 | XMS_ITS | Clinical Summary ---
Author Organization [facility] Address [address] [place] [address] Care Team Providers Care Maid Cleaning Cooking Name Role Phone Ace Veronica MD Primary Care Provider [phone] Source Comments [facility],non-owned Affiliates and Associated Physician Practices is amultiple site organization consisting of ambulatory clinics and hospital sitesin [place], [place], [place] and [place]. This disclosure is being madepursuant to the Care Everywhere program and may not contain all information available regarding this patient. Last updated 18.[employer] [facility] Allergies Active Allergy Reactions Criticality Noted Date Comments Penicillins Unknown 11/03/2018 Pt states he was told he is allergic to PCNs but unsure why Medications Be aware that medications may not be up to date on this document. Always verify current medications with the patient. No known medications Social History Tobacco Use Types Packs/Day Years Used Date Smoking Tobacco: Never Smokeless Tobacco: Never Alcohol Use Standard Drinks/Week Comments No 0 (1 standard drink = 0.6 oz pur e alcohol) Sex and Gender Information Value Date Recorded Sex Assigned at Not on file Gender Identity Not on file Sexual Orientation Not on file Last Filed Vital Signs Vital Sign Reading Time Taken Comments Blood Pressure 135/69 11/03/2018 9:45 PM CDT Pulse 81 11/03/2018 9:45 PM CDT Temperature 36.5 C (97.7 F) 11/03/2018 7:39 PM CDT Respiratory Rate 18 11/03/2018 9:45 PM CDT Oxygen Saturation 96% 11/03/2018 9:45 PM CDT Inhaled Oxygen Concentration - - Weight 102.1 kg (225 lb) 11/03/2018 7:39 PM CDT Height 175.3 cm (5' 9 ) 11/03/2018 7:39 PM CDT Body Mass Index 33.23 11/03/2018 7:39 PM CDT Plan of Treatment Health Maintenance Due Date Last Done Comments COLOGUARD (AGES 45-75) - COL ON CA SCREENING 1961 COLON MONITORING 1961 COLONOSCOPY - COLON CA SCREENING 1961 CT COLONOGRAPHY - COLON CA SCREENING 1961 Colorectal Cancer Screening 1961 FIT - COLON CA SCREENING 1961 FLEX SIG - COLON CA SCREENING 1961 LIPID TESTING 1961 DTAP/TDAP/TD VACCINES (1 - Tdap) 1980 PNEUMOCOCCAL VACCINE 50+ (1 of 1 - PCV) 2011 ZOSTER VACCINE (1 of 2) 2011 COVID-19 VACCINE (1 - 2023-2 5 season) 2024 INFLUENZA VACCINE (#1) 2024 DEPRESSION SCREENING 06/08/2024 Respiratory Syncytial Virus (RSV) Vaccine Pt: or over 60 yrs (1 - 1-dose 75+ series) 2036 HEPATITIS C SCREENING Completed 11/03/2018 HIV SCREENING Completed 11/03/2018 HEPATITIS B VACCINE Aged Out No longe r eligible based on patient's age to complete this topic HIB VACCINE Aged Out No longer eligi ble based on patient's age to complete this topic HPV VACCINE Aged Out No longer eligi ble based on patient's age to complete this topic MENINGOCOCCAL (Group B) VACCINE Aged Out No longer eligible based on patient's age to complete this topic MENINGOCOCCAL VACCINE Aged Out No kimberly king eligible based on patient's age to complete this topic PNEUMOCOCCAL VACCINE Aged Out No long er eligible based on patient's age to complete this topic Procedures Procedure Name Priority Date/Time Associated Diagnosis Comments HEPATITIS C AB SCREEN RFLX NAAT QUANT STAT 11/03/2018 8:13 PM CDT HIV-1 HIV-2 ANTIGEN/ANTIBODY STAT 11/03/2018 8:13 PM CDT from Last 3 Months or Most Recently Relevant to Health Maintenance Results * HIV-1 HIV-2 ANTIGEN/ANTIBODY (11/03/2018 8:13 PM CDT) HIV Antigen/Antibod y 1 & 2 Non-reacti ve Non-react thony 11/03/2018 9:09 PM CDT [facility] Comment: Neither HIV-1 p24 Antigen nor HIV-1/HIV-2 Antibodies are detected. Blood BLOOD SPECIMEN / Unknown Venipuncture / Unknown 11/03/2018 8:13 PM CDT 11/03/2018 8:20 PM CDT Matias George MD LAB - HEMATOLOGY ORD ERABLES [address] [phone] * HEPATITIS C AB SCREEN RFLX NAAT QUANT (11/03/2018 8:13 PM CDT) Pathologist [facility] Hepatitis C Antibody Non-react thony Non-reac tive 11/03/2018 9:11 PM CDT [facility] Comment: Hepatitis C Antibody screen indicates no serologic evidence of past or current infection with Hepatitis C Virus. Patients with unexplained liver disease who are immunocompromised or suspected of having acute Hepatitis C infection may benefit from Nucleic Acid Test (WILLIAM) for Hepatitis C Viral RNA to confirm Hepatitis C status. Blood BLOOD SPECIMEN / Unknown Venipuncture / Unknown 11/03/2018 8:13 PM CDT 11/03/2018 8:20 PM CDT Matias George MD LAB - CHEMISTRY ORDE [place]ILIAM [address] [phone] from Last 3 Months or Most Recently Relevant to Health Maintenance Care Teams Maid Cleaning Cooking Relationship Specialty Start Date End Date Ace Veronica MD [address] [place] [id number] PCP - General Family Medicine 11/03/18
--- OUTSIDE RECORDS SUMMARY | 2024-07-21 08:37 | XMS_ITS | Referral Summary ---
Author Organization [address] Address [address] [place] [id number] Care Team Providers Care Coo Name Role Phone No, Physician Primary Care Provider [phone] Allergies Active Allergy Reactions Criticality Noted Date Comments Penicillins Other (See comments) Reaction: UNKNOWN Medications No known medications Active Problems Problem Noted Date Diagnosed Date Tendinitis of right rotator cuff 03/18/2021 Right shoulder pain 03/18/2021 Social History Tobacco Use Types Packs/Day Years Used Date Smoking Tobacco: Never Personal Safety Answer Date Recorded Getting School Help Needed Not on file 08/20 Sex and Gender Information Value Date Recorded Sex Assigned at Not on file Legal Sex Male 9:13 AM DUDE WRANGLER Gender Identity Not on file Sexual Orientation Not on file Last Filed Vital Signs Vital Sign Reading Time Taken Comments Blood Pressure - - Pulse - - Temperature - - Respiratory Rate - - Oxygen Saturation - - Inhaled Oxygen Concentration - - Weight 106.6 kg (235 lb) 05/01/2021 1:27 PM DUDE WRANGLER Height 175.3 cm (5' 9 ) 05/01/2021 1:27 PM DUDE WRANGLER Body Mass Index 34.7 05/01/2021 1:27 PM DUDE WRANGLER Plan of Treatment Not on file Insurance [employer] [place] [address] [place] [address] Care Teams Coo Relationship Specialty Start Date End Date No, Physician PCP - General 03/15/21
--- OUTSIDE RECORDS SUMMARY | 2024-07-21 08:37 | XMS_ITS | Continuity of Care Document ---
Author Organization [facility] Address [address] [place] [address] Phone Care Team Providers Care Hide Dropper Name Role Phone Shahid OD, Luis F Unavailable Unavailable Advance Directives Directive Yes / No Effective Date File Name No Information Encounters Encounter Description Practice Location Reason(s) For Visit Diagnoses Date Provider Providers Copied on Encounter [facility], [address], [place], [place], [id number], [place] tel:[phone] [facility] No Information 2-200 4 Shahid OD Luis F. [address] , [address], [place], [address], [place]. tel:[phone] Family History Family Member Type Diagnosis Age At Onset No Information Payers Payer name Insurance type Covered green party ID Authoriza tion(s) No Information Social History Type Description Quantity Date Captured Comments Sex Female Smoking Status No Information Chief Complaint And Reason For Visit No Information Reason For Referral Reason For Referral No Information History Of Present Illness Encounter Date Complaint History Of Prese nt Illness No Information Functional Status Date Functional Assessmen t No Information Instructions Date Instruction Additional Infor mation No Information Assessments Type Assessment Date No Information Patient Care Teams Name Effective Dates (start - stop) Status Members No Information
--- OUTSIDE RECORDS SUMMARY | 2024-07-21 08:37 | XMS_ITS | Patient Health Summary ---
Author Organization [facility] Address [address] [place] [address] Care Team Providers Care [employer] Project Manager Name Role Phone Ace Veronica MD Primary Care Provider [phone] Note from [facility],non-owned Affiliates and Associated Physician Practices is amultiple site organization consisting of ambulatory clinics and hospital sitesin [place], [place], [place] and [place]. This disclosure is being madepursuant to the Care Everywhere program and may not contain all information available regarding this patient. Last updated 18.[facility] Allergies * Penicillins(Unknown) Medications Be aware that medications may not [...] Mass Index 33.23 11/03/2018 7:39 PM CDT Procedures * CARDIAC EKG ORDER(Performed 11/22/2018) * BASIC METABOLIC PANEL (CALCIUM TOTAL)(Performed 11/03/2018) * CBC W AUTO DIFFERENTIAL(Performed 11/03/2018) * HIV-1 HIV-2 ANTIGEN/ANTIBODY(Performed 11/03/2018) * HEPATITIS C AB SCREEN RFLX NAAT QUANT(Performed 11/03/2018) * EKG 12-LEAD(Performed 11/03/2018) Performed for Syncope and collapse Results * CARDIAC EKG ORDER (11/22/2018 1:40 PM CDT) Narrative 11/22/2018 1:40 PM CDT Ordered by an unspecified provider. Scanned Document CARDIAC SERVICES ORD ERABLES * HIV-1 HIV-2 ANTIGEN/ANTIBODY (11/03/2018 8:13 PM CDT) HIV Antigen/Antibod y 1 & 2 Non-reacti ve Non-react thony 11/03/2018 9:09 PM CDT [facility] Comment: Neither HIV-1 p24 Antigen nor HIV-1/HIV-2 Antibodies are detected. Blood BLOOD SPECIMEN / Unknown Venipuncture / Unknown 11/03/2018 8:13 PM CDT 11/03/2018 8:20 PM CDT Matias George MD LAB - HEMATOLOGY ORD ERABLES [address] [phone] * HEPATITIS C AB SCREEN RFLX NAAT QUANT (11/03/2018 8:13 PM CDT) Hepatitis C Antibody Non-react thony Non-reac tive 11/03/2018 9:11 PM CDT [facility] Comment: Hepatitis C Antibody screen indicates no [...] CDT Matias George MD LAB - CHEMISTRY [facility] Organization Address City/State/ZIP Co de Phone Number [facility] [address] [phone] * (ABNORMAL) CBC W AUTO DIFFERENTIAL (11/03/2018 8:13 PM CDT) WBC 10.4 3.5 - 10.5 10 3/uL 11/03/2018 8:29 PM CDT [facility] RBC 4.88 4.30 - 5.70 10 6/uL 11/03/2018 8:29 PM [facility] Hemoglobin 14.1 13.5 - 17.5 g/dL 11/03/2018 8:29 PM [facility] Hematocrit 42.7 39.0 - 50.0 % 11/03/2018 8:29 PM [facility] MCV 87.5 81.0 - 97.0 fL 11/03/2018 8:29 PM [facility] MCH 28.9 28.0 - 34.0 pg 11/03/2018 8:29 PM [facility] MCHC 33.0 32.0 - 36.0 g/dL 11/03/2018 8:29 PM [facility] Platelet Count 273 150 - 400 10 3/uL 11/03/2018 8:29 PM [facility] RDW-SD 43.7 36.0 - 50.0 fL 11/03/2018 8:29 PM [facility] RDW-CV 13.5 11.2 - 14.8 % 11/03/2018 8:29 PM [facility] MPV 8.9(L) 9.3 - 12.8 fL 11/03/2018 8:29 PM [facility] nRBC Absolute 0.00 0 10 3/uL 11/03/2018 8:29 PM [facility] nRBC Auto 0.0 0 /100 WBC 11/03/2018 8:29 PM [facility] Neutrophils % 75.8(H) 35.0 - 70.0 % 11/03/2018 8:29 PM [facility] Lymphocytes % 14.8(L) 19.7 - 55.1 % 11/03/2018 8:29 PM [facility] Monocytes % 6.3 3.0 - 15.0 % 11/03/2018 8:29 PM [facility] Eosinophils % 2.1 0.0 - 6.0 % 11/03/2018 8:29 PM [facility] Basophil % 0.5 0.0 - 1.5 % 11/03/2018 8:29 PM [facility] Neutrophils Absolute 7.9(H) 1.6 - 7.0 10 3/uL 11/03/2018 8:29 PM [facility] Lymphocyte Absolute 1.5 0.8 - 2.9 10 3/uL 11/03/2018 8:29 PM [facility] Monocytes Absolute 0.65 0.14 - 0.66 10 3/uL 11/03/2018 8:29 PM [facility] Eosinophils Absolute 0.22 0.00 - 0.45 10 3/uL 11/03/2018 8:29 PM [facility] Basophils Absolute 0.05 0.00 - 0.06 10 3/uL 11/03/2018 8:29 PM [facility] Immature Granulocytes % 0.5 0.0 - 1.0 % 11/03/2018 8:29 PM [facility] Blood BLOOD SPECIMEN / Unknown Venipuncture / Unknown 11/03/2018 8:13 PM CDT 11/03/2018 8:20 PM CDT Matias George MD LAB - HEMATOLOGY ORD ERABLES [facility] [address] [phone] * (ABNORMAL) BASIC METABOLIC PANEL (CALCIUM TOTAL) (11/03/2018 8:13 PM CDT) BUN 19 7 - 26 mg/dL 11/03/2018 8:47 PM [facility] Creatinine 1.0 0.6 - 1.2 mg/dL 11/03/2018 8:47 PM [facility] Sodium 141 136 - 145 mmol/L 11/03/2018 8:47 PM [facility] Potassium 4.0 3.5 - 4.5 mmol/L 11/03/2018 8:47 PM [facility] Chloride 104 98 - 107 mmol/L 11/03/2018 8:47 PM [facility] CO2 27 22 - 29 mmol/L 11/03/2018 8:47 PM [facility] Glucose 117(H) 70 - 115 mg/dL 11/03/2018 8:47 PM [facility] Calcium 9.0 8.4 - 10.2 mg/dL 11/03/2018 8:47 PM [facility] Anion Gap 14 8 - 18 11/03/2018 8:47 PM [facility] BUN/Creatinine Ratio 19 7 - 23 11/03/2018 8:47 PM [facility] Osmolality Calculated 295 270 - 300 mOsm/kg 11/03/2018 8:47 PM [facility] eGFR >60 >60 mL/min/1.7 3 m2 11/03/2018 8:47 PM [facility] Blood BLOOD SPECIMEN / Unknown Venipuncture / Unknown 11/03/2018 8:13 PM CDT 11/03/2018 8:20 PM CDT Matias George MD LAB - CHEMISTRY [facility] Organization Address City/State/ZIP Co de Phone Number [facility] [address] [place] [address] * EKG 12-LEAD (11/03/2018 8:00 PM CDT) Ventricular Rate 71 BPM [facility] Atrial Rate 71 BPM [facility] P-R Interval 158 ms [facility] QRS Duration ms 94 ms [facility] Q-T Interval ms 378 ms [facility] QTC Calculation (Bezet) 410 ms [facility] Calculated P [place] 39 degrees [facility] Calculated R [place] 24 degrees [facility] Calculated T [place] 45 degrees [facility] Interpretation EKG NORMAL SINUS RHYTHM LOW VOLTAGE QRS BORDERLINE ECG NO PREVIOUS ECGS AVAILABLE Confirmed by Stacey Martin, Lacie ([id number]), editor farm journal MARA ALTAMIRANO ([id number]) on 11/12/2018 2:28:51 PM [facility] 11/03/2018 8:00 PM CDT 11/12/2018 2:28 PM CDT Matias George MD ECG ORDERABLES [facility] Care Teams [employer] Project Manager Relationship Specialty Start Date End Date Ace Veronica MD [address] [place] [address] PCP - General Family Medicine 11/03/18
--- OUTSIDE RECORDS SUMMARY | 2024-07-21 08:37 | XMS_ITS | Data Portability ---
Author Organization [place] [facility], Main Office Address [address] [place] [address] Care Team Providers Care Nursing Scheduler Name Role Phone CATHERINE VICTORIA Primary Care Provider [phone] CATHERINE VICTORIA Referring Provider [phone] Assessment Encounter Date Assessment Date Assessment LastModified by Organization Details LastModified Time 08/08/2022 08/08/2022 HPI: Patient returns. He is 1 month out from left total knee arthroplasty. He continues do very well. He is on baby aspirin twice a day. He is taking Celebrex once a day. He will take occasional Tylenol. He has been his complaint is that the knee is a little bit sore by the end of the day. He remains in outpatient therapy. Physical exam: His incisions well healed. He is walking very well without assistance or limp. Range of motion is from 0-130 degrees. There is no increased swelling in either lower extremity. Impression: Patient is doing well 1 month out from left total knee arthroplasty. He will continue with his baby aspirin twice a day. He did ask for refill his narcotics and will give that to him today. He will continue with the Celebrex. He is going to stop doing outpatient therapy in just continue doing his exercises on his own. We will see him back in 2 weeks for 6 week follow-up with x-rays at that time. Not available 08/08/2022 12:09:16 08/18/2022 08/18/2022 HPI: Patient returns. He is 6 weeks out from left total knee arthroplasty. He continues do very well. He has occasional ache in the knee but other than at the very comfortable in overall very active. Physical exam: Patient is walking very well today without assistance. He has no limp. Minimal effusion left knee. Well-healed incision. Range of motion is from 0-135 degrees. There is excellent stability in both flexion extension. No increased swelling in either lower extremity. Impression: Patient is doing very well 6 weeks out left total knee arthroplasty. He will stop the baby aspirin at this point. I encouraged him to continue with his exercises for the next 6 months so he does not lose ground with his range of motion. Long-term risk of infection was discussed. He is thinking about having his right knee replaced in December we will set up an appointment about a month prior that for surgical consultation. Also see him back at his 1 year anniversary his left knee. Not available 08/18/2022 15:46:11 12/03/2022 12/03/2022 Patient returns. Would like to discuss treatment for his right knee. He had left total knee arthroplasty in June of 2022 and has done very well. 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 Occasionally the knee is painful. Is usually over the anteromedial aspect of his right knee reveals the symptoms. He is not had any treatment for his knee thus far he has not had cortisone shot and is not taking anti-inflammatory medication currently. X-rays today show that on the PA flexion start view he has ctnl-lt-nmij medial compartment osteoarthritis. Be Impression patient does have radiographically severe medial compartment osteoarthritis in the right knee. He was here with his today. I reviewed the risks of surgery with him in detail including the numbness lateral to the incision difficulty kneeling that many patients will report after knee replacement, risk of infection blood clots component loosening stiffness need for revision surgery fracture instability nerve injury bleeding need for transfusion and medical complications such as heart attack stroke pulmonary embolism and . I also discussed non operative treatment strategies which would include oral anti-inflammatory medication possibly a cortisone shot. After this discussion he felt that his symptoms were severe enough to warrant a cortisone shot this time he would like to try diclofenac and we will try the lower dose initially 50 mg twice daily. He denies any liver or kidney problems or history of peptic ulcer disease. I have discussed with him that when his symptoms are no longer controlled adequately with nonsurgical treatment we can certainly revisit the discussion knee replacement surgery. Can also have a cortisone shot for a flare-up of symptoms. I am happy to see him back at any time for further discussion. He was given his instruction she describing possible side effects of anti-inflammatory medication use. We will want to check a CBC and CMP after 3 months if he decides to continue with the diclofenac. If he would like to try the stronger 75 mg twice daily dose he will call us. 30 minutes were spent in total care this patient more than half the time spent in ourt-fw-bcpf care. [email or web address] Not available 12/07/2022 17:11:15 07/29/2023 07/29/2023 HPI: Patient returns. He is 1 year out from left total knee arthroplasty. Knee is doing very well. He is happy with his results. He is having no symptoms in the left knee. He does get occasional symptoms in the right knee at this point. He has known ubhv-jg-hrqm medial compartment osteoarthritis on previous PA flexion view. He is not taking any anti-inflammatorie s this point. He is not ready to talk about surgery right but is thinking maybe later this year wants to have this addressed. Physical exam: 63-year-old male alert pleasant. He walks very well. His left knee has no effusion. Well-healed incision. Range of motion is from 0-135 degrees. He has excellent stability in both flexion and extension. No edema in either lower extremity. Impression: Patient is 1 year out from left total knee arthroplasty. He has excellent range of motion stability. X-rays look excellent. He is very happy with his results. He does have rather severe medial compartment osteoarthritis in the right knee and again is most likely going to have this addressed later this year. Talked about the use of qvbe-isc-dxudkhy anti-inflammatorie s as well as injections in the knee to try to keep his symptoms tolerable until he is ready to discuss surgery and he will keep these in mind. He will need to be seen back in 5 years for routine x-ray surveillance or sooner if he has problems. Long-term risk of infection discussed. 20 minutes was spent in treatment patient more than half this etdz-dp-htca conversation Not available 07/29/2023 14:38:44 Plan of Treatment Reminders Order Date Submit Date Provider Last Modified By Organization Details Last Modified Time Details Appointments None recorded. Lab None recorded. Referral None recorded. Procedures None recorded. Surgeries None recorded. Imaging XR, knee 2023 024 [facility] [place], [address], [place], [address], 4 15:15:05 XR, knee 2022 023 [email or web address] [facility] [place], [address], [place], [address], 3 09:16:52 XR, knee 2022 023 [email or web address] [facility] [place], [address], [place], [address], 3 16:03:18 Medication Orders diclofenac sodium 50 mg tablet,ysabel yed release 2022 023 [email or web address] [id number], [address] [facility], [place], [address], 3 13:10:33 Patient TargetsNo targets recorded. Patient InstructionsNo instructions recorded. Reason for Referral None Reported. Results Created Date Observation Date Name Description Value Unit Range Abnormal Flag Note LastModifiedBy Organization Detail LastModifiedTime 07/02/1902/08/2022 mariely huerta am No observ ation record ed. [id number] Not Available 08/06/2022 10:47:53 07/07/19 23 07/07/2022 XR, knee No observ ation record ed. [id number] [facility] [address], [place], [address], 08/06/2022 10:47:53 08/19/19 XR, knee No observ ation record ed. [facility] [place] [address], [place], [address], 08/18/2022 15:44:37 12/04/19 23 XR, knee No observ ation record ed. [email or web address] [facility] [place] [address], [place], [address], 12/07/2022 17:02:47 07/29/19 24 XR, knee No observ ation record ed. [facility] [place] [address], [place], [address], 07/29/2023 14:36:58 Result Notes None recorded. Problems Name Problem SNOMED Code Status Onset Date Resolution Date Notes Provider Name and Address Organization Details Recorded Time History of left total knee replacemen t 3329047142649 105 Active 2022 Not Available [facility] 3 10:44:39 Osteoarthr itis 529072079 Active 2021 Not Available [facility] 3 10:44:39 Pain of bilateral knee joints 8259705849289 04 Active 2021 Not Available [facility] 3 10:44:39 Pain of right knee joint 4291982675340 00 Active 2022 KADI Overton, [employer] [facility] [employer] [facility] 3 08:42:52 Osteoarthr itis of right knee joint 2273306635356 00 Active 2022 MEGAN Meyer, [employer] [facility] 3 10:11:13 Problem Notes None recorded. Procedures Surgical History Date Name Laterality Status Provider Name and Address Organization Details Recorded Time Knee Surgery completed KADI Overton [employer] [facility] 12/03/2022 08:40:23 Hernia Repair completed KADI Overton [employer] [facility] 12/03/2022 08:40:31 hemorrhoidectomy completed KADI Schultz [employer] [facility] 12/03/2022 08:41:28 Imaging Results Imaging Date Name Status LastModified by Organization Details LastModified Time 02/08/2022 electrocardiogram completed [email or web address]. [id number] Information not available 08/06/2022 10:47:53 07/07/2022 XR, knee completed [id number] [facility] [address], [place], [address], 08/06/2022 10:47:53 08/18/2022 XR, knee completed [facility] [place] [address], [place], [address], 08/18/2022 15:44:37 12/03/2022 XR, knee completed [email or web address] [facility] [place] [address], [place], [address], 12/07/2022 17:02:47 07/29/2023 XR, knee completed [facility] [place] [address], [place], [address], 07/29/2023 14:36:58 Procedure Notes None recorded. Medical Equipment None Reported. Allergies Allergen ID Allergen Name Allergen Category Reaction Reaction Severity Criticality Documentation Date Start Date Code Code System Note Provider Name and Address Organization Details Recorded Time 97934 Product containin g penicilli n and antibioti c (product) medicatio n Not available Not available Not available 08/06/2022 84774 05 SNOMED Not Available [facility] 10:47[facility]35 Medications Name Sig Start Date Stop Date Status Note LastModified by Organization Details LastModified Time celecoxib 200 mg capsule TAKE 1 CAPSULE BY MOUTH DAILY 12/03 completed Not Available Not Available Not Available doxycycline hyclate 100 mg capsule 04/15 completed Not Available Not Available Not Available polyethylen e glycol 3350 17 gram oral powder packet MIX AND TAKE 1 PACKET (17 G) BY MOUTH EVERY MORNING 08/08 completed Not Available Not Available Not Available ofloxacin 0.3 % eye drops INSTILL 2 DROPS INTO EACH EYE FOUR TIMES DAILY active Not Available Not Available No t Available meloxicam 15 mg tablet TAKE 1 TABLET BY MOUTH EVERY DAY 07/21 completed Not Available Not Available Not Available clindamycin HCl 150 mg capsule TAKE THREE CAPSULES BY MOUTH EVERY 8 HOURS FOR 7 DAYS 05/28 completed Not Available Not Available Not Available meclizine 12.5 mg tablet TAKE ONE TABLET BY MOUTH THREE TIMES A DAY NEEDED FOR DIZZINESS 05/28 completed Not Available Not Available Not Available hydrocodone 10 mg-acetamin ophen 325 mg tablet TAKE 1 TABLET BY MOUTH EVERY 6 HOURS NEEDED FOR PAIN active Not Available Not Available No t Available acetaminoph en 500 mg tablet TAKE 2 TABLETS BY MOUTH EVERY 6 HOURS 08/08 completed Not Available Not Available Not Available sildenafil 100 mg tablet TAKE 1 TABLET BY MOUTH ONCE DAILY NEEDED FOR SEXUAL ACTIVITY. TAKE 30 MINUTES TO 4 HOURS BEFORE ACTIVITY active Not Available Not Available No t Available prednisolon e acetate 1 % eye drops,suspe nsion INSTILL 1 DROP INTO BOTH EYES THREE TIMES A DAY SHAKE WELL BEFORE EACH USE active Not Available Not Available No t Available pravastatin 10 mg tablet TAKE 1 TABLET BY MOUTH EVERY DAY AT BEDTIME 07/21 completed Not Available Not Available Not Available Kenalog 10 mg/mL suspension for injection In office injection administe red by the provider 02/19 completed [facility]: [phone] Not Available Not Available Not Available hydrocodone 7.5 mg-acetamin ophen 325 mg tablet TAKE 1 TABLET BY MOUTH EVERY 6 HOURS NEEDED FOR PAIN active Not Available Not Available No t Available cephalexin 500 mg capsule TAKE 1 CAPSULE BY MOUTH EVERY 6 HOURS 08/08 completed Not Available Not Available Not Available docusate sodium 100 mg capsule TAKE 1 CAPSULE BY MOUTH TWICE A DAY active Not Available Not Available No t Available hydrocortis one 2.5 % topical cream APPLY TOPICALLY TWICE A DAY NEEDED FOR HEMORRHOI DS active Not Available Not Available No t Available pravastatin 20 mg tablet TAKE 1 TABLET BY MOUTH DAILY 05/28 completed Not Available Not Available Not Available lisinopril 5 mg tablet TAKE 1 TABLET BY MOUTH EVERY DAY active Not Available Not Available No t Available mupirocin 2 % topical ointment APPLY IN BOTH NOSTRILS TWICE DAILY DIRECTED STARTING 5 DAYS BEFORE SURGERY DATE 12/03 completed Not Available Not Available Not Available diclofenac sodium 50 mg tablet,ysabel yed release TAKE 1 TABLET BY MOUTH TWICE A DAY active Not Available Not Available No t Available methylpredn isolone 4 mg tablets in a dose pack 04/15 completed Not Available Not Available Not Available Hibiclens 4 % topical liquid USE TO PERFORM DAILY TOTAL BODY WASH STARTING 5 DAYS BEFORE SURGERY 07/21 completed Not Available Not Available Not Available oxycodone 5 mg tablet TAKE 1 TABLET BY MOUTH EVERY 4 HOURS NEEDED 12/03 completed Not Available Not Available Not Available hydrocortis one 1 % topical cream with perineal applicator APPLY TOPICALLY TWICE A DAY NEEDED FOR HEMORRHOI DS active Not Available Not Available No t Available rosuvastati n 5 mg tablet 02/19 completed Not Available Not Available Not Available rosuvastati n 20 mg tablet TAKE 1 TABLET BY MOUTH DAILY active Not Available Not Available No t Available lidocaine (PF) 5 mg/mL (0.5 %) injection solution In office injection administe red by the provider 02/19 completed Not Available Not Available Not Available Senexon-S 8.6 mg-50 mg tablet TAKE 2 TABLETS BY MOUTH TWICE A DAY 08/08 completed Not Available Not Available Not Available Eliquis 2.5 mg tablet TAKE 1 TABLET BY MOUTH EVERY 12 HOURS 08/08 completed Not Available Not Available Not Available Paxlovid 300 mg (150 mg x 2)-100 mg tablets in a dose pack TAKE 2 TABLETS (NIRMATRE LVIR) AND TAKE 1 TABLET (RITONAVI R) BY MOUTH TWICE A DAY FOR 5 DAYS active Not Available Not Available No t Available Vitals Date Recorded Body height Provider Name an d Address Organization Details Last Updated DateTime 08/06/2022 170.18 cm Not Available [facility] 10:43:49 Date Recorded Body height Provider Name an d Address Organization Details Last Updated DateTime 08/08/2022 170.18 cm Bita Vasquez [facility] 08/08/2022 11:09:14 Date Recorded Body height Provider Name an d Address Organization Details Last Updated DateTime 08/18/2022 170.18 cm Bita Vasquez [facility] 08/18/2022 14:52:19 Date Recorded Body height Body mass index (BMI) Body weight Provider Name and Address Organization Details Last Updated DateTime 12/03/2022 172.72 cm 33.3 kg/m2 68297.73 g Bita Vasquez [facility] 12/03/2022 08:50:59 Date Recorded Body height Provider Name an d Address Organization Details Last Updated DateTime 07/29/2023 172.72 cm KADI Overton [facility] [employer] [facility] 07/29/2023 14:18:28 Social History Question Answer Notes LastModified by Organizat ion Details LastModified Time Tobacco Smoking Status Never Smoker KADI Overton null [facility] [employer] [facility] 12/03/2022 08:40:15 What Is Your Level Of Alcohol Consumption? Occasional [email or web address] Information not available 12/03/2022 Sex: Unknown Functional Status None recorded. Mental Status None recorded. Family History Relationship Description Onset Age of this Age Resolved Age Notes LastModified by Organization Details LastModified Time Father Family history of malignant neoplasm [email or web address] Not available 2022 08:40:05 Sister Family history of malignant neoplasm [email or web address] Not available 2022 08:40:05 Medical History No medical history recorded. Past Encounters Encounter ID Performer Location Encounter Start Date Encounter Closed Date Diagnosis/Indication Diagnosis SNOMED-CT Code Diagnosis ICD10 Code Diagnosis Note [id number] [facility] [place] [address] [place] [address] 11/20/2021 00:00:00 11/20/2021 09:58:32 [id number] [facility] [place] [address] [place] [address] 02/19/2022 00:00:00 03/02/2022 13:42:24 [id number] [facility] [place] [address] [place] [address] 05/28/2022 00:00:00 06/05/2022 15:02:49 [id number] [facility] [place] [address] [place] [address] 07/21/2022 00:00:00 07/21/2022 14:24:27 [id number] MARQUES Stroud [facility] [place] [address] [place] [address] 08/08/2022 11:03:58 08/08/2022 12:33:44 History of revision of left total knee arthroplasty 4378218492 51068 Z96.652 [id number] MARQUES Stroud [facility] [place] [address] [place] [address] 08/18/2022 14:34:18 08/18/2022 15:58:29 History of left total knee replacement 4585807671 148277 Z96.652 [id number] Joe Navarro MD [facility] [place] [address] [place] [address] 12/03/2022 08:20:17 12/08/2022 09:16:51 Pain of right knee joint 7039177596 04888 M25.439 [id number] MARQUES Stroud [facility] [place] [address] [place] [address] 07/29/2023 14:13:55 07/29/2023 14:39:35 History of left total knee replacement 1313057466 718806 Z96.652 Health Concerns Section Related Observation LastModified by Organization Detai ls LastModified Time None Recorded Concern Status LastModified by Organization Details LastModified Time None Recorded Advance Directives Directive None Recorded Payers Encounter Date Sequence Insurance Name Policy Number Policy Claros Covered Member ID Claros Member ID Guarantor Name 08/08/2022 1 [place] [id number] 1 Ian J Lidia [id number] Ian Lidia 08/18/2022 1 [place] [id number] 1 Ian J Lidia [id number] Ian Lidia 12/03/2022 1 [place] [id number] 1 Ian J Lidia [id number] Ian Lidia 07/29/2023 1 [place] [id number] 1 Ian J Lidia [id number] Ian Lidia
--- OUTSIDE RECORDS SUMMARY | 2024-07-21 08:37 | XMS_ITS | Clinical Summary ---
Author Organization [address] Address [address] [place] [address] Care Team Providers Care Ear Machine Operator Name Role Phone No, Physician Primary Care Provider [phone] Allergies Active Allergy Reactions Criticality Noted Date Comments Penicillins Other (See comments) Reaction: UNKNOWN Medications No known medications Active Problems Problem Noted Date Diagnosed Date Tendinitis of right rotator cuff 03/18/2021 Right shoulder pain 03/18/2021 Surgical History Surgery Date Site/Laterality Comments HERNIA REPAIR Family History Medical History Relation Name Comments No Known Problems Daughter No Known Problems Son Relation Name Status Comments Daughter Alive Son Alive Social History Tobacco Use Types Packs/Day Years Used Date Smoking Tobacco: Never Personal Safety Answer Date Recorded Getting School Help Needed Not on file 08/20 Sex and Gender Information Value Date Recorded Sex Assigned at Not on file 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 Gender Identity Not on file Sexual Orientation Not on file Obstetrics History Last Filed Vital Signs Vital Sign Reading Time Taken Comments Blood Pressure - - Pulse - - Temperature - - Respiratory Rate - - Oxygen Saturation - - Inhaled Oxygen Concentration - - Weight 106.6 kg (235 lb) 05/01/2021 1:27 PM TIMBER SIZER OPERATOR Height 175.3 cm (5' 9 ) 05/01/2021 1:27 PM TIMBER SIZER OPERATOR Body Mass Index 34.7 05/01/2021 1:27 PM TIMBER SIZER OPERATOR Plan of Treatment Not on file Insurance [employer] [place] [address] Care Teams Ear Machine Operator Relationship Specialty Start Date End Date No, Physician PCP - General 03/15/21
--- OUTSIDE RECORDS SUMMARY | 2024-07-21 08:37 | XMS_ITS | Referral Summary ---
Author Organization [facility] Address [address] [facility] [place] [address] Care Team Providers Care Director Of Retail Analytics Name Role Phone Ace Veronica MD Primary Care Provider [phone] Source Comments [facility],non-owned Affiliates and Associated Physician Practices is amultiple site organization consisting of ambulatory clinics and hospital sitesin [place], [place], [place] and [place]. This disclosure is being madepursuant to the Care Everywhere program and may not contain all information available regarding this patient. Last updated 18.[facility] Allergies Active Allergy Reactions Criticality Noted Date [...] 11/03/2018 7:39 PM CDT Plan of Treatment Not on file Procedures Procedure Name Priority Date/Time Associated Diagnosis Comments HEPATITIS C AB SCREEN RFLX NAAT QUANT STAT 11/03/2018 8:13 PM CDT HIV-1 HIV-2 ANTIGEN/ANTIBODY STAT 11/03/2018 8:13 PM CDT from Last 3 Months or Most Recently Relevant to Health Maintenance Results * HIV-1 HIV-2 ANTIGEN/ANTIBODY (11/03/2018 8:13 PM CDT) HIV Antigen/Antibod y 1 & 2 Non-reacti ve Non-react thony 11/03/2018 9:09 PM CDT [facility] Comment: Neither HIV-1 p24 Antigen nor HIV-1/HIV-2 Antibodies are detected. Blood BLOOD SPECIMEN / Unknown Venipuncture / Unknown 11/03/2018 8:13 PM CDT 11/03/2018 8:20 PM CDT Matias George MD LAB - HEMATOLOGY ORD ERABLES Performing Organization Address City/State/[facility] Co de Phone Number [address] [phone] * HEPATITIS C AB SCREEN RFLX NAAT QUANT (11/03/2018 8:13 PM CDT) Hepatitis C Antibody Non-react thony Non-reac tive 11/03/2018 9:11 PM CDT [facility] Comment: Hepatitis C Antibody screen indicates no [...] Matias George MD LAB - CHEMISTRY ORDE RABLES [facility] [address] [place] [address], [facility] [phone] from Last 3 Months or Most Recently Relevant to Health Maintenance Care Teams Director Of Retail Analytics Relationship Specialty Start Date End Date Ace Veronica MD [address] [place] [id number] PCP - General Family Medicine 11/03/18
[2024-07-21 19:15] LABS: Hematocrit 47.4 % (42.0-52.0); Hemoglobin 15.4 g/dL (14.0-18.0); Mean Corpuscular HGB Conc 32.5 g/dl (32-36); Mean Corpuscular Hemoglobin 28.6 pg (26-34); Mean Corpuscular Volume 87.9 fl (80-100); Mean Platelet Volume 9.4 fl (7.4-10.4); Platelet Count Result 284 k/mm3 (150-375); Red Blood Count 5.39 M/mm3 (4.6-6.20); Red Cell Distribution Width 13.5 % (11.5-14.5); White Blood Count 7.3 K/mm3 (4.5-10.0)
[2024-07-21 19:47] LABS: Alanine Aminotransferase 20 U/L (6-50); Albumin Level 4.2 g/dL (3.5-5.1); Alkaline Phosphatase 77 U/L (38-126); Anion Gap 9 mmol/L (4-12); Aspartate Amino Transferase 30 U/L (17-59); Bilirubin,Total 0.7 mg/dL (0.2-1.3); Blood Urea Nitrogen 19 mg/dL (9-20); Calcium 9.4 mg/dL (8.4-10.2); Carbon Dioxide 30 mmol/L (22-30); Chloride 99 mmol/L (98-107); Cholesterol 151 mg/dL (0-200); Estimated Glomerular Filt Rate > 60; Glucose 130 mg/dL (65-110); HDL Direct 42 mg/dL; Potassium 4.7 mmol/L (3.4-5.0); Sodium 138 mmol/L (137-145); Triglycerides 135 mg/dL (<150)
[2024-07-21 19:58] LABS: LDL Cholesterol Direct 82 mg/dL
[2024-07-21 20:42] LABS: Hemoglobin A1C 7.2 % (<5.7)
== END 2024-07-21 08:35 | disposition home or self-care (01) ==
LOC: ANHGOSHLAB 08:35
PROVIDERS: PCP Family Medicine; Visit Provider Family Medicine
DX: E66.9 Obesity, unspecified (principal); E11.9 Type 2 diabetes mellitus without complications; E78.2 Mixed hyperlipidemia; I10 Essential (primary) hypertension
CPT/HCPCS: 36415; 80053; 80061; 83036; 84443; 85027

== ENCOUNTER 2025-04-03 09:58 | Outpatient (CLI) | payer BC, SELFPAY ==
--- OUTSIDE RECORDS SUMMARY | 2025-04-03 11:08 | XMS_ITS | Clinical Summary ---
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 Gender Identity Not on file Sexual Orientation Not on file Obstetrics History Last Filed Vital Signs Vital Sign Reading Time Taken Comments Blood Pressure - - Pulse - - Temperature - - Respiratory Rate - - Oxygen Saturation - - Inhaled Oxygen Concentration - - Weight 106.6 kg (235 lb) 05/01/2021 1:27 PM HEALTH PROGRAM SPECIALIST Height 175.3 cm (5' 9) 05/01/2021 1:27 PM HEALTH PROGRAM SPECIALIST Body Mass Index 34.7 05/01/2021 1:27 PM HEALTH PROGRAM SPECIALIST Plan of Treatment Not on file Insurance [employer] Care Teams Towerman Relationship Specialty Start Date End Date No, Physician PCP - General 03/15/21
--- OUTSIDE RECORDS SUMMARY | 2025-04-03 11:08 | XMS_ITS | Clinical Summary ---
Author Organization [facility] Address [address] [facility] [place] [address] Care Team Providers [employer] Division Chair Name Role Phone Ace Veronica MD Primary Care Provider [phone] Source Comments [facility],non-owned Affiliates and Associated Physician Practices is amultiple site organization consisting of ambulatory clinics and hospital sitesin [place], [place], [place] and [place]. This disclosure is being madepursuant to the Care Everywhere program and may not contain all information available regarding this patient. Last updated 18.[facility] Allergies Active Allergy Reactions Criticality Noted Date Comments Penicillins Unknown 11/03/2018 Pt states he was told he is allergic to PCNs but unsure why Medications * Be aware that medications may not be up to date on this document. Alwaysverify current medications with the patient. No known medications Social History Tobacco Use Types Packs/Day Years Used Date Smoking Tobacco: Never Smokeless Tobacco: Never Alcohol Use Standard Drinks/Week Comments No 0 (1 standard drink = 0.6 oz pur e alcohol) Sex and Gender Information Value Date Recorded Sex Assigned at Not on file Legal Sex Male 7:23 PM CDT Gender Identity Not on file Sexual Orientation [...] 7:39 PM CDT Height 175.3 cm (5' 9) 11/03/2018 7:39 PM CDT Body Mass Index [...] 2011 ZOSTER VACCINE (1 of 2) 2011 DEPRESSION SCREENING 06/08/2024 COVID-19 VACCINE (1 - 2023-2 5 season) 2025 INFLUENZA VACCINE (#1) 2025 Respiratory Syncytial Virus (RSV) Vaccine Pt: or [...] to complete this topic MENINGOCOCCAL (Group B) VACC INE SHARED DECISION-MAKING Aged Out No longer eligibl e based on patient's age to complete this topic MENINGOCOCCAL GROUPS A/C/Y/W VACCINE Aged Out No longer eligible b ased on patient's age to complete this topic [...] ve Non-react thony 11/03/2018 9:09 PM CDT [facility] Comment: Neither HIV-1 p24 Antigen nor HIV-1/HIV-2 Antibodies are detected. Blood BLOOD SPECIMEN / Unknown Venipuncture / Unknown 11/03/2018 8:13 PM CDT 11/03/2018 8:20 PM CDT us Matias George MD LAB - HEMATOLOGY ORDERABLES Fi nal Result Performing Organization Address [facility] Co de Phone Number [address] [phone] * HEPATITIS C AB SCREEN RFLX NAAT QUANT (11/03/2018 8:13 PM CDT) Hepatitis C Antibody Non-react thony Non-reac tive 11/03/2018 9:11 PM CDT [facility] Comment: Hepatitis C Antibody screen [...] 8:13 PM CDT 11/03/2018 8:20 PM CDT us Matias George MD LAB - CHEMISTRY ORDERABLES Fin al Result Performing Organization Address City/[facility]/ZIP Co de Phone Number [address] [phone] from Last 3 Months or Most Recently Relevant to Health Maintenance Insurance [employer]/[facility] SELF PAY NO INSURANCE Member Subscriber Plan / Payer (Ef fective for All Dates) Name:Ian Murillo Member ID:Not on file Relation to Subscriber:Not on file Name:IAN MURILLO Subscriber ID:Not on file Address: [address] [address] Payer ID:Not on file Group ID:Not on file Type:Self Pay Address: [place], [place] * Guarantor: IAN MURILLO Account Type Relation to Patient Date of Phone Billing Address Personal/Family Spouse [address] [address] [facility] SELF PAY NO INSURANCE Member Subscriber Plan / Payer (Ef fective for All Dates) Name:Ian Murillo Member ID:Not on file Relation to Subscriber:Not on file Name:IAN MURILLO Subscriber ID:Not on file Address: [address] [place] [id number] Payer ID:Not on file Group ID:Not on file Type:Self Pay Address: [place], [place] [employer] Division Chair Relationship Specialty Start Date End Date Ace Veronica MD [address] [place] [id number] PCP - General Family Medicine 11/03/18
[2025-04-03 13:15] LABS: Hematocrit 47.2 % (42.0-52.0); Hemoglobin 15.3 g/dL (14.0-18.0); Mean Corpuscular HGB Conc 32.4 g/dl (32-36); Mean Corpuscular Hemoglobin 28.5 pg (26-34); Mean Corpuscular Volume 87.9 fl (80-100); Platelet Count Result 279 k/mm3 (150-375); Red Blood Count 5.37 M/mm3 (4.6-6.20); White Blood Count 7.0 K/mm3 (4.5-10.0)
[2025-04-03 13:32] LABS: Alanine Aminotransferase 20 U/L (6-50); Albumin Level 4.2 g/dL (3.5-5.1); Alkaline Phosphatase 70 U/L (38-126); Anion Gap 6 mmol/L (4-12); Aspartate Amino Transferase 44 U/L (17-59); Bilirubin,Total 0.7 mg/dL (0.2-1.3); Blood Urea Nitrogen 19 mg/dL (9-20); Calcium 9.1 mg/dL (8.4-10.2); Carbon Dioxide 29 mmol/L (22-30); Chloride 101 mmol/L (98-107); Cholesterol 144 mg/dL (0-200); Estimated Glomerular Filt Rate > 60; Glucose 124 mg/dL (65-110); HDL Direct 39 mg/dL; Potassium 4.4 mmol/L (3.4-5.0); Sodium 136 mmol/L (137-145); Total Protein 7.1 g/dL (6.3-8.2); Triglycerides 146 mg/dL (<150)
[2025-04-03 14:12] LABS: Prostate Specific Antigen 0.7 ng/mL (< OR = 4.0); Thyroid Stimulating Hormone 1.730 uIU/mL (0.465-4.680)
[2025-04-03 15:05] LABS: MALB Creatinine Ratio 41.8 mg/g (0-30)
[2025-04-03 15:32] LABS: Hemoglobin A1C 6.5 % (<5.7)
== END 2025-04-03 09:59 | disposition home or self-care (01) ==
LOC: ANHGOSHLAB 09:59
PROVIDERS: PCP Family Medicine; Visit Provider Family Medicine
DX: E78.2 Mixed hyperlipidemia (principal); I10 Essential (primary) hypertension; E11.9 Type 2 diabetes mellitus without complications; E66.9 Obesity, unspecified; Z12.5 Encounter for screening for malignant neoplasm of prostate; Z00.00 Encounter for general adult medical examination without abnormal findings
CPT/HCPCS: 36415; 80053; 80061; 82043; 83036; 84153; 84443; 85027; G0103